=== PATIENT | female | born 1975 | race Caucasian/White ===

== ENCOUNTER 2022-05-23 13:18 | Inpatient (IN) | payer SELFPAY ==
[2022-05-23 13:46] LABS: Absolute Lymphocytes (CBC) 2.1 K/uL (0.7-4.9); Hematocrit 42.6 % (36.0-45.0); Lymphocytes % 18.1 % (15.3-44.8); MCV 88.2 fL (80-100); MPV 7.6 fL (7.6-11.3); RBC Red Blood Cell Count 4.83 M/uL (3.86-4.86)
[2022-05-23 13:52] LABS: Urine Blood 1+ (Negative); Urine Glucose Negative (Negative); Urine Protein Negative (Negative); Urine pH 7.5 (5.0-7.0)
[2022-05-23 14:03] LABS: Albumin 3.3 g/dL (3.4-5.0); Bilirubin Total 0.2 mg/dL (0.2-1.0); Potassium 4.1 mmol/L (3.5-5.1); Protein, Total 6.8 g/dL (6.4-8.2)
[2022-05-23 14:06] LABS: Urine Bacteria <20 /HPF (<20); Urine Mucus Slight /HPF (None Seen)
[2022-05-23] MEDS ORDERED: ONDANSETRON 4 MG/2 ML VIAL ONE ×3 (14:52→17:40)
[2022-05-23] MEDS ORDERED: MORPHINE 4 MG/ML SYR ONE (14:52)
--- NOTE | 2022-05-23 14:58 | RAD REPORT ---
EXAM DESCRIPTION: CTAbdomen Pelvis W Contrast - 05/23/2022 2:40 pm CLINICAL HISTORY: Abdominal pain. ABD PAIN COMPARISON: No comparisons TECHNIQUE: Biphasic CT imaging of the abdomen and pelvis was performed with 100 ml non-ionic IV cont rast. All CT scans are performed using dose optimization technique as appropriate and may include automated exposure control or mA/KV adjustment according to patient size. FINDINGS: The lung bases are clear. The liver, spleen, pancreas, adrenal glands and right kidney are within normal limits. Atrophic left kidney. There is a dilated tubular structure in the right lower quadrant measuring 22 mm. There is mild adjac ent fluid seen in the right lower quadrant. Significant stool retention in the right colon. No evid ence of significant lymphadenopathy. Mild lumbosacral degenerative changes. IMPRESSION: Acute appendicitis, possibly perforated.
--- NOTE | 2022-05-23 15:01 | RAD REPORT ---
EXAM DESCRIPTION: US - Transvaginal Study Probe - 05/23/2022 2:41 pm CLINICAL HISTORY: PAIN Pelvic pain. COMPARISON: No comparisons FINDINGS: The uterus is normal in size, shape and echotexture. The uterus measures 6.7 x 3.6 cm. The endometrial stripe measures 10-11 mm, thickened. Both ovaries are normal in size, shape and echotexture. The right ovary measures 2.6 x 1.9 cm. The left ovary measures 2.9 x 2.6 cm. No ovarian or parovarian lesions. No adnexal masses. Normal Doppler blood flow was demonstrated to both ovaries. No significant pelvic ascites. IMPRESSION: No acute process identified.Mildly thickened endometrial stripe, probably physiologic.
[2022-05-23] MEDS ORDERED: NA CHLORIDE 0.9% 100 ML ONE (15:32)
[2022-05-23] MEDS ORDERED: HYDROMORPHONE HCL 1 MG/ML INJ ONE (15:32)
[2022-05-23] MEDS ORDERED: PIPERACIL/TAZO 3.375 GM VIAL IV ONE (15:32)
[2022-05-23] MEDS ORDERED: NA CHLORIDE 0.9% 1,000 ML ONE (15:32)
[2022-05-23 15:59] LABS: SARS-CoV-2 Antigen Rapid Res Negative (Negative)
[2022-05-23] MEDS ORDERED: ACETAMINOPHEN 500 MG TAB PO PRN (16:10)
--- NOTE | 2022-05-23 16:25 | RAD REPORT ---
EXAM DESCRIPTION: RAD - Chest Single View - 05/23/2022 4:00 pm CLINICAL HISTORY: ABDOMINAL DISTENTION Chest pain. COMPARISON: CHEST SINGLE VIEW dated 03/11/2012; CHEST SINGLE VIEW dated 03/10/2012 FINDINGS: Portable technique limits examination quality. The lungs are grossly clear. The heart is normal in size. No displaced fractures. IMPRESSION: No acute intrathoracic process suspected.
[2022-05-23] MEDS ORDERED: HYDROMORPHONE HCL 1 MG/ML INJ IV SCH (17:00)
[2022-05-23] MEDS: PIPER TAZO 3.375 GM in NA CHLORIDE 0.9% 100 ML IV SCH (17:00)
--- NOTE | 2022-05-23 17:03 | P.HP ---
Certification for Inpatient Patient admitted to: Observation With expected LOS: <2 Midnights Patient will require the following post-hospital care: None Practitioner: I am a practitioner with admitting privileges, knowledge of patient current condition, hospital course, and medical plan of care. Services: Services provided to patient in accordance with Admission requirements found in Title 42 Section 412.3 of the Code of Federal Regulations Patient History Date of Service: 05/23/22 Reason for admission: PERFORATED APPENDIX Allergies No Known Allergies Allergy (Unverified 03/10/12 12:59) Home Medications: levoFLOXacin [Levaquin*] 500 mg PO DAILY #5 tab 03/12/12 - Past Medical/Surgical History Diabetic: No - Social History Alcohol use: Yes CD- Drugs: Yes Caffeine use: Yes Review of Systems 10-point ROS is otherwise unremarkable Physical Examination - Vital Signs Temperature: 98 F Blood Pressure: 140/80 Pulse: 80 Respirations: 18 Pulse Ox (%): 95 - Physical Exam General: Alert, In no apparent distress, Oriented x3 HEENT: Atraumatic, PERRLA, Mucous membr. moist/pink, EOMI, Sclerae nonicteric Neck: Supple, 2+ carotid pulse no bruit, No LAD, Without JVD or thyroid abnormality Respiratory: Clear to auscultation bilaterally, Normal air movement Cardiovascular: Regular rate/rhythm, Normal S1 S2 Gastrointestinal: Normal bowel sounds, No tenderness Musculoskeletal: No tenderness Integumentary: No rashes Neurological: Normal gait, Normal speech, Normal strength at 5/5 x4 extr, Normal tone, Normal affect Lymphatics: No axilla or inguinal lymphadenopathy - Studies Laboratory Data (last 24 hrs) 05/23/22 13:31: Sodium 139, Potassium 4.1, BUN 19 H, Creatinine 0.96, Glucose 112 H, Total Bilirubin 0.2, AST 28, ALT 32, Alkaline Phosphatase 75, Lipase 20 05/23/22 13:31: WBC 11.80 H, Hgb 13.9, Hct 42.6, Plt Count 344 Assessment & Plan - Problems (Diagnosis) (1) Perforated appendicitis Current Visit: Yes Status: Acute - Advance Directives Does patient have a Living Will: No Does patient have a Durable POA for Healthcare: No
[2022-05-23] MEDS ORDERED: BUPIVACAINE 0.25% PF 30 ML VIAL ONE (17:31)
[2022-05-23] MEDS ORDERED: KETOROLAC 30 MG/ML INJ ONE (17:39)
[2022-05-23] MEDS ORDERED: propofoL 200 MG/20 ML VIAL IV ONE (17:39)
[2022-05-23] MEDS ORDERED: LIDOCAINE 2% MPF 5 ML VIAL ONE (17:39)
[2022-05-23] MEDS ORDERED: FENTANYL CITR 250 MCG/5 ML ONE (17:39)
[2022-05-23] MEDS ORDERED: ROCURONIUM 50 MG/5 ML VIAL IV ONE (17:39)
[2022-05-23] MEDS ORDERED: dexAMETHasone 10 MG/ML VIAL ONE (17:40)
--- NOTE | 2022-05-23 18:04 | CON ---
Date of Consultation: 05/23/2022 Brief History Of Present Illness: The patient is a 46-year-old female, who presents with sudden onse t of right lower quadrant abdominal pain beginning earlier today. She noted the pain got significant ly worse, severe, stabbing, and intractable. As such, she came to the emergency room with the above- stated complaints. She states she has had some constipation as of late and required digital removal of the stool. As of this last week, she has had some nausea, but no vomiting. The pain continues to be persistent into the right lower quadrant at this point. She does admit to medicating at home wit h a combination of recreational drugs including methamphetamines, marijuana, cocaine, LSD, and prescr iption pills including benzodiazepines such as Valium. Past Medical History: Hypertension, prediabetic, polycystic ovary disease. Past Surgical History: Denies. Allergies: NO KNOWN DRUG ALLERGIES. Medications: She takes a blood pressure medication, she cannot recall the details. Social History: Admits to multiple recreational drug use as described above including, but not limit ed to marijuana, cocaine, LSD, heroin, benzodiazepines, and other prescription medications for pain p redominantly and for sedation. 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 Review of Systems: Ten-point review of systems other than HPI, denies. Physical Examination: General: At the time of my examination, she is awake, alert, oriented. Psychiatric: She is appropriate, conversive. HEENT: She is normocephalic. Sclerae anicteric. Mucous membranes moist. Oropharynx clear. Neck: Supple without JVD. Chest: Expansion and excursion. Cardiovascular: Regular rate and rhythm. Pulmonary: Clear to auscultation bilaterally. Abdomen: Soft with positive right lower quadrant focal peritonitis, positive rebound, positive guard ing near McBurney point. Extremities: No clubbing, cyanosis, or edema. Skin: Warm and dry. Laboratory Data: Revealed a white blood cell count of 11.8, hemoglobin is 13.9, hematocrit 42.6, tasha telet count is 344, neutrophils 79%. Her sodium 139, potassium 4.1, chloride 110, carbon dioxide 24, BUN 19, creatinine 0.9, glucose is 112, calcium 9.8, total bilirubin 0.2, AST 20, ALT 32, alkaline p hosphatase 75, lipase is 20. UA showed 5-10 red blood cells and 20-50 squamous epithelial cells, tra ce amorphous crystals, negative leukocyte esterase, negative nitrite. She had imaging performed, [facility] included an abdomen and pelvis CT, officially read on 05/23/2022 as acute appendicitis, probably p erforated. There was a dilated tubular structure in the right lower quadrant measuring 22 mm. There was mild adjacent fluid in the right lower quadrant, significant stool retention in the right colon. No evidence of significant lymphadenopathy. She had a transvaginal ultrasound performed as well as she has a history of polycystic ovary disease, which was officially read as no acute process identif ied, mildly thickened endometrial stripe, probably physiologic. Both ovaries are normal in size, sha pe, and echotexture. No ovarian or paraovarian lesion. No adnexal masses. Chest x-ray performed on 05/23 officially read as no acute intrathoracic process suspected. Assessment And Plan: This is a 46-year-old female, who comes in with signs and symptoms of acute pos sibly perforated appendicitis. 1.IV fluid hydration. 2.Antibiotic coverage. 3.I have explained risks, benefits, and alternatives of laparoscopic possible open appendectomy incl uding, but not limited to bleeding, infection, damage to surrounding tissue, need for further operation and procedures. The patient agre ed to proceed as indicated. NICKY/ALLISON Voice ID: [id number] Report ID: [id number]
[2022-05-23] MEDS ORDERED: GLYCOPYRROLATE 0.2 MG/ML SYR ONE (18:12)
[2022-05-23] MEDS ORDERED: NEOSTIGMINE 1 MG/ML -10 ML VIAL ONE (18:13)
--- NOTE | 2022-05-23 18:30 | P.OP ---
Preoperative diagnosis: Perforated Appendicitis Postoperative diagnosis: Perforated Appendicitis Primary procedure: Laparoscopic Appendectomy Anesthesia: GETA + Local Estimated blood loss: <5cc Specimen: Vermiform Appendix Findings: perforated appendicits Complications: None Transferred to: Recovery Room Condition: Good
[2022-05-23] MEDS ORDERED: LABETALOL 20 MG/4ML SYRINGE IV ONE (18:40)
[2022-05-23 18:58] VITALS: O2SAT 95
[2022-05-23] MEDS: D5 0.45 NS 1,000 ML IV SCH (19:26)
--- NOTE | 2022-05-23 19:34 | OP ---
Date of Procedure: 05/23/2022 Surgeon: Juliano Schulz MD, Preoperative Diagnosis: Perforated appendicitis. Postoperative Diagnosis: Perforated appendicitis. Procedure Performed: Laparoscopic appendectomy. Anesthesia: General endotracheal plus local with 0.25% Marcaine. Estimated Blood Loss: Less than 5 cc. Specimen: Vermiform appendix. Pelvic washings sent for cytology. Findings: Acute perforated appendicitis with significant intraabdominal inflammation and contaminati on. Complications: None. Disposition: The patient was transferred to the recovery room in good condition. Procedure In Detail: After informed consent was obtained, the patient was brought to the operating r oom, prepped and draped in the usual sterile fashion after adequate anesthesia was achieved. An infr aumbilical area was anesthetized with 0.25% Marcaine, sharply incised. A 5 mm trocar was placed unde r direct visualization without evidence of complication. Insufflation was obtained to 15 mmHg at thi s time. There was no injury to vital structure upon entry into the abdomen. Two additional trocars were placed, 1 in the right lower quadrant and 1 in the left lower quadrant. Both of these were antonia larly anesthetized, sharply incised. A 5 mm trocar was placed under direct visualization without nelida dence of complication. The umbilical trocar was then upsized to a 12 mm under direct visualization w ithout evidence of complication. The patient was positioned in the head down right side up position. Ratcheted grasper was used to grasp the patient's appendix, found to be quite dilated and consisten t with perforation. Perforation was appreciated on the proximal aspect of the appendix. A mesoappen diceal window was created using a Soraida tractor. Endo-CASSANDRA 45 purple load fired across the base of the appendix with good approximation of tissues. The LigaSure was then used to take the mesoappendix down without evidence of complication. The appendix was then placed in EndoCatch bag, removed throu gh the umbilical trocar site and sent off for pathologic examination. The abdomen was then copiously irrigated and suctioned out until completely dry from all irrigant. Pelvic examination was also preston reciated. This area was copiously irrigated as well and suctioned out until completely clear. Of no te, there was no appearance of polycystic ovary disease as the adnexum was inspected at this point. Additionally, there were small areas of punctate lesions on the liver. As such, peritoneal washing w as performed at this time and this was sent off for cytology at this time as well. After the abdomen was copiously irrigated and dried second time, the patient was positioned back in neutral position. The remaining effluent fluid suctioned out from the pelvis. The 12 mm trocar site was then closed u sing a Avelino-Jagdish suture passer with 0 Vicryl in a running fashion with good approximation of ti ssues. The remaining trocars were then inspected and the abdomen was de-desufflated under direct vis ualization without evidence of complication. Remaining trocars were removed. All skin incisions wer e copiously irrigated and closed with interrupted yehuda and a sterile dressing placed over top. Th e patient tolerated the procedure well without evidence of complication and transferred to PACU in go od condition. All counts were correct at the end of the case. NICKY/ALLISON Voice ID: [id number] Report ID: [id number]
[2022-05-23] MEDS: FAMOTIDINE 20 MG/2 ML VIAL IV SCH (20:44)
[2022-05-23 22:33] VITALS: BMI 34.9
[2022-05-24] MEDS: HYDROMORPHONE HCL 1 MG/ML INJ IV PRN ×3 (00:14→22:06)
[2022-05-24] MEDS: PIPER TAZO 3.375 GM in NA CHLORIDE 0.9% 100 ML IV SCH ×3 (00:14→17:49)
[2022-05-24] MEDS: D5 0.45 NS 1,000 ML IV SCH ×4 (03:29→18:01)
[2022-05-24 03:55] LABS: Absolute Lymphocytes (CBC) 0.6 K/uL (0.7-4.9); Hematocrit 38.6 % (36.0-45.0); Lymphocytes % 2.6 % (15.3-44.8); MCV 89.5 fL (80-100); MPV 8.1 fL (7.6-11.3); RBC Red Blood Cell Count 4.31 M/uL (3.86-4.86)
[2022-05-24 03:56] LABS: Albumin 2.8 g/dL (3.4-5.0); Bilirubin Direct 0.2 mg/dL (0-0.2); Bilirubin Total 0.5 mg/dL (0.2-1.0); Potassium 4.1 mmol/L (3.5-5.1); Protein, Total 6.2 g/dL (6.4-8.2)
[2022-05-24 04:21] LABS: Blood Morphology Comment NOT SEEN (NOT SEEN); Platelet Estimate ADEQ
[2022-05-24] MEDS: HYDROCODONE/APAP 5/325 MG TAB PO PRN ×3 (06:34→17:48)
[2022-05-24] MEDS: FAMOTIDINE 20 MG/2 ML VIAL IV SCH ×2 (08:34→22:05)
[2022-05-24] MEDS ORDERED: ACETAMINOPHEN 325 MG TABLET PO PRN (09:36)
--- NOTE | 2022-05-24 13:04 | EKG ---
Test Date: 2022-05-23 Test Time: 15:41:34 Machine Finisher: SIMA MEASUREMENT RESULTS: Intervals: Rate: 101 WA: 156 QRSD: 80 QT: 344 QTc: 446 [place]: P: 68 WA: 156 QRS: -39 T: 64 INTERPRETIVE STATEMENTS: Sinus tachycardia Possible Left atrial enlargement Left axis deviation Septal infarct, age undetermined Abnormal ECG Compared to ECG 03/10/2012 14:03:04 Left-axis deviation now present Myocardial infarct finding now present Sinus rhythm no longer present Electronically Signed On 05-24-22 13:03:02 HYDROLOGY TEACHER by Chadd Matos
[2022-05-24] MEDS: INSULIN -REGULAR HUMAN 50 UNIT/0.5 ML ML SQ SCH ×2 (16:30→21:00)
[2022-05-24] MEDS: HEPARIN 5000 UNIT/ML 1 ML VIAL SQ SCH (17:49)
[2022-05-25] MEDS: PIPER TAZO 3.375 GM in NA CHLORIDE 0.9% 100 ML IV SCH ×3 (01:09→18:15)
[2022-05-25] MEDS: D5 0.45 NS 1,000 ML IV SCH ×3 (01:12→19:39)
[2022-05-25] MEDS: HEPARIN 5000 UNIT/ML 1 ML VIAL SQ SCH ×3 (01:13→18:15)
[2022-05-25] MEDS: HYDROMORPHONE HCL 1 MG/ML INJ IV PRN ×4 (04:29→19:57)
[2022-05-25 04:37] LABS: Absolute Lymphocytes (CBC) 2.4 K/uL (0.7-4.9); Hematocrit 36.9 % (36.0-45.0); Lymphocytes % 12.4 % (15.3-44.8); MCV 88.9 fL (80-100); MPV 7.5 fL (7.6-11.3); RBC Red Blood Cell Count 4.15 M/uL (3.86-4.86)
[2022-05-25 04:48] LABS: Magnesium 2.1 mg/dL (1.6-2.4); Phosphorus 1.9 mg/dL (2.5-4.9)
[2022-05-25] MEDS: INSULIN -REGULAR HUMAN 50 UNIT/0.5 ML ML SQ SCH ×4 (07:30→19:40)
[2022-05-25] MEDS: POTASS/SODIUM PHOSPHATE 1 PKT POWD.PACK PO SCH ×3 (08:08→10:47)
[2022-05-25] MEDS: FAMOTIDINE 20 MG/2 ML VIAL IV SCH (08:09)
[2022-05-25] MEDS: ONDANSETRON 4 MG/2 ML VIAL IV PRN (09:30)
[2022-05-25] MEDS: HYDROCODONE/APAP 5/325 MG TAB PO PRN (10:48)
[2022-05-25] MEDS ORDERED: ERTAPENEM SODIUM 1 GM VIAL IVPB ONE (16:25)
[2022-05-25] MEDS ORDERED: ERTAPENEM NA 1 GM in NA CHLORIDE 0.9% 100 ML IVPB ONE (17:00)
[2022-05-25] MEDS: FAMOTIDINE 20 MG TAB PO SCH (19:43)
[2022-05-26] MEDS: HEPARIN 5000 UNIT/ML 1 ML VIAL SQ SCH ×3 (00:40→16:39)
[2022-05-26] MEDS: HYDROMORPHONE HCL 1 MG/ML INJ IV PRN ×2 (00:40→04:45)
[2022-05-26] MEDS: PIPER TAZO 3.375 GM in NA CHLORIDE 0.9% 100 ML IV SCH ×3 (00:40→16:38)
[2022-05-26] MEDS: D5 0.45 NS 1,000 ML IV SCH (03:48)
[2022-05-26 05:15] LABS: Hematocrit 42.3 % (36.0-45.0); MCV 88.6 fL (80-100); RBC Red Blood Cell Count 4.77 M/uL (3.86-4.86)
[2022-05-26 05:16] LABS: Absolute Lymphocytes (CBC) 1.4 K/uL (0.7-4.9); Lymphocytes % 12.3 % (15.3-44.8); MPV 8.2 fL (7.6-11.3)
[2022-05-26 05:23] LABS: Magnesium 1.8 mg/dL (1.6-2.4); Phosphorus 3.1 mg/dL (2.5-4.9); Potassium 3.8 mmol/L (3.5-5.1)
[2022-05-26] MEDS ORDERED: MAGNESIUM SULFATE 1 gm IVPB 1 GM/100 ML BAG IV ONE (05:40)
[2022-05-26] MEDS ORDERED: POTASSIUM CL SA 10 MEQ TAB PO ONE (05:41)
[2022-05-26] MEDS: INSULIN -REGULAR HUMAN 50 UNIT/0.5 ML ML SQ SCH ×4 (07:30→21:00)
[2022-05-26] MEDS: FAMOTIDINE 20 MG TAB PO SCH ×2 (08:15→21:04)
[2022-05-26] MEDS: HYDROCODONE/APAP 5/325 MG TAB PO PRN ×4 (08:15→21:04)
--- NOTE | 2022-05-26 10:35 | P.PN ---
Date of Service: 05/25/22 Subjective Subjective: No new changes, No C/O voiced, Improving Physical Examination - Vital Signs reviewed - Physical Exam General: Alert, In no apparent distress Respiratory: Clear to auscultation bilaterally, Normal air movement Cardiovascular: Regular rate/rhythm, Normal S1 S2 Gastrointestinal: Normal bowel sounds, No tenderness Musculoskeletal: No tenderness Neurological: Normal speech, Normal tone, Normal affect Assessment & Plan - Problems (Diagnosis) (1) Perforated appendicitis Current Visit: Yes Status: Acute - Plan PLAN: 1. Continue with antibiotics 2. IVFs 3. Pathology pending 4. GI/DVT prophylaxis
--- NOTE | 2022-05-26 10:35 | P.PN ---
Subjective Date of Service: 05/24/22 Subjective: No new changes, No C/O voiced, Improving Review of Systems 10-point ROS is otherwise unremarkable Physical Examination - Vital Signs Temperature: 97.0 F Blood Pressure: 130/87 Pulse: 80 Respirations: 16 Pulse Ox (%): 98 - Physical Exam General: Alert, In no apparent distress HEENT: Atraumatic, PERRLA, EOMI Neck: Supple, JVD not distended Respiratory: Clear to auscultation bilaterally, Normal air movement Cardiovascular: Regular rate/rhythm, Normal S1 S2 Gastrointestinal: Normal bowel sounds, No tenderness Musculoskeletal: No tenderness Integumentary: No rashes Neurological: Normal speech, Normal tone, Normal affect Lymphatics: No axilla or inguinal lymphadenopathy - Studies Medications List Reviewed: Yes Assessment & Plan - Problems (Diagnosis) (1) Perforated appendicitis Current Visit: Yes Status: Acute - Plan PLAN: 1. Continue with antibiotics 2. IVFs 3. Pathology pending 4. GI/DVT prophylaxis Discharge Plan: Home Plan to discharge in: Greater than 2 days - Advance Directives Does patient have a Living Will: No Does patient have a Durable POA for Healthcare: No - Code Status/Comfort Care Code Status Assessed: Yes Code Status: Full Code Critical Care: No Time Spent Managing PTS Care (In Minutes): 35
[2022-05-26] MEDS: ONDANSETRON 4 MG/2 ML VIAL IV PRN (21:05)
[2022-05-27] MEDS: HYDROCODONE/APAP 5/325 MG TAB PO PRN (00:55)
[2022-05-27] MEDS: PIPER TAZO 3.375 GM in NA CHLORIDE 0.9% 100 ML IV SCH ×2 (00:55→09:11)
[2022-05-27] MEDS: HEPARIN 5000 UNIT/ML 1 ML VIAL SQ SCH (00:56)
[2022-05-27 04:51] LABS: Absolute Lymphocytes (CBC) 2.2 K/uL (0.7-4.9); Hematocrit 40.2 % (36.0-45.0); Lymphocytes % 23.4 % (15.3-44.8); MCV 89.7 fL (80-100); MPV 7.9 fL (7.6-11.3); RBC Red Blood Cell Count 4.47 M/uL (3.86-4.86)
[2022-05-27 05:29] LABS: Albumin 2.7 g/dL (3.4-5.0); Bilirubin Total 0.1 mg/dL (0.2-1.0); Phosphorus 3.6 mg/dL (2.5-4.9); Protein, Total 6.3 g/dL (6.4-8.2)
[2022-05-27 05:35] LABS: Potassium 3.8 mmol/L (3.5-5.1)
[2022-05-27] MEDS: INSULIN -REGULAR HUMAN 50 UNIT/0.5 ML ML SQ SCH (07:30)
[2022-05-27 08:09] VITALS: BP 135/85; TEMP 98
[2022-05-27] MEDS ORDERED: POTASSIUM 25 MEQ EFFERV TAB PO ONE ×2 (09:00)
[2022-05-27] MEDS: FAMOTIDINE 20 MG TAB PO SCH (09:11)
--- NOTE | 2022-06-09 14:20 | EDPHYS ---
Physician Documentation [facility] Name: Gillian Almeida Age: 46 yrs Sex: Female : 1975 Arrival Date: 05/23/2022 Time: 13:19 Bed 5 Private MD: ED Physician Jake Streeter HPI: 05/23 15:26 This 46 yrs old Female presents to ER via Wheelchair with complaints of javier Pelvic Pain. 15:26 The patient presents with abdominal pain right lower quadrant, abdominal distention in javier the upper abdomen, in the lower abdomen. Onset: The symptoms/episode began/occurred 1 day(s) ago. The symptoms do not radiate. Associated signs and symptoms: Pertinent positives: nausea and vomiting. The symptoms are described as constant, crampy. Modifying factors: The symptoms are alleviated by remaining still, the symptoms are aggravated by coughing, movement, pressure, walking. Severity of pain: At its worst the pain was mild moderate in the emergency department the pain is unchanged. The patient has not experienced similar symptoms in the past. Historical: - Allergies: 13:30 No Known Allergies; iw - Home Meds: 13:30 Adderall XR Oral [Active]; Lisinopril Oral [Active]; Metformin Oral [Active]; bupropion iw HCl Oral daily [Active]; Abilify oral [Active]; - Immunization history:: Adult Immunizations unknown. - Family history:: not pertinent. - Social history:: Smoking status: Patient reports the use of cigarette tobacco products, smokes one pack cigarettes per day. ROS: 15:26 Constitutional: Negative for fever, chills, and weight loss, Eyes: Negative for injury, javier pain, redness, and discharge, ENT: Negative for injury, pain, and discharge, Neck: Negative for injury, pain, and swelling, Cardiovascular: Negative for chest pain, palpitations, and edema, Respiratory: Negative for shortness of breath, cough, wheezing, and pleuritic chest pain, Back: Negative for injury and pain, : Negative for injury, bleeding, discharge, and swelling, MS/Extremity: Negative for injury and deformity, Skin: Negative for injury, rash, and discoloration, Neuro: Negative for headache, weakness, numbness, tingling, and seizure, Psych: Negative for depression, anxiety, suicide ideation, homicidal ideation, and hallucinations, Allergy/Immunology: Negative for hives, rash, and allergies, Endocrine: Negative for neck swelling, polydipsia, polyuria, polyphagia, and marked weight changes, Hematologic/Lymphatic: Negative for swollen nodes, abnormal bleeding, and unusual bruising. 15:26 Abdomen/GI: Positive for abdominal pain, of the right lower quadrant. Exam: 15:26 Constitutional: This is a well developed, well nourished patient who is awake, alert, javier and in no acute distress. Head/Face: Normocephalic, atraumatic. Eyes: Pupils equal round and reactive to light, extra-ocular motions intact. Lids and lashes normal. Conjunctiva and sclera are non-icteric and not injected. Cornea within normal limits. Periorbital areas with no swelling, redness, or edema. ENT: Nares patent. No nasal discharge, no septal abnormalities noted. Tympanic membranes are normal and external auditory canals are clear. Oropharynx with no redness, swelling, or masses, exudates, or evidence of obstruction, uvula midline. Mucous membranes moist. Neck: Trachea midline, no thyromegaly or masses palpated, and no cervical lymphadenopathy. Supple, full range of motion without nuchal rigidity, or vertebral point tenderness. No Meningismus. Chest/axilla: Normal chest wall appearance and motion. Nontender with no deformity. No lesions are appreciated. Cardiovascular: Regular rate and rhythm with a normal S1 and S2. No gallops, murmurs, or rubs. Normal PMI, no JVD. No pulse deficits. Respiratory: Lungs have equal breath sounds bilaterally, clear to auscultation and percussion. No rales, rhonchi or wheezes noted. No increased work of breathing, no retractions or nasal flaring. Back: No spinal tenderness. No costovertebral tenderness. Full range of motion. Female : Normal external genitalia. Skin: Warm, dry with normal turgor. Normal color with no rashes, no lesions, and no evidence of cellulitis. MS/ Extremity: Pulses equal, no cyanosis. Neurovascular intact. Full, normal range of motion. Neuro: Awake and alert, GCS 15, oriented to person, place, time, and situation. Cranial nerves II-XII grossly intact. Motor strength 5/5 in all extremities. Sensory grossly intact. Cerebellar exam normal. Normal gait. Psych: Awake, alert, with orientation to person, place and time. Behavior, mood, and affect are within normal limits. 15:26 Abdomen/GI: Bowel sounds: normal, Palpation: moderate abdominal tenderness, in the right lower quadrant, Liver: no appreciated palpable abnormalities, Hernia: not appreciated. 15:50 ECG was reviewed by the Attending Physician. [facility] Vital Signs: 13:26 BP 165 / 92; Pulse 105; Resp 20; Temp 98; Pulse Ox 98% on R/A; Pain 10/10; iw 16:04 BP 148 / 102; Pulse 107; Resp 18; Temp 97.8; Pulse Ox 98% on R/A; ph 13:26 Pain Scale: Adult iw MDM: 13:23 Patient medically screened. [facility] 15:39 Differential diagnosis: appendicitis, bowel obstruction, Cholelithiasis, Dysmenorrhea, javier Endometriosis, gastritis, non-specific abd pain, Peptic Ulcer Disease, Pyelonephritis, Ureterolithiasis, urinary tract infection. Data reviewed: vital signs, nurses notes, lab test result(s), EKG, radiologic studies, CT scan, plain films. Consideration of Admission/Observation Patient was admitted/placed on observation. Management of patient was discussed with the following: Adult School Counselor: general surgeon, dr juliano desai. I considered the following discharge prescriptions or medication management in the emergency department Medications were administered in the Emergency Department. See MAY. 05/23 13:25 Order name: CBC with Diff [facility] 05/23 13:25 Order name: CMP [facility] 05/23 13:25 Order name: Lipase [facility] 05/23 13:25 Order name: Urine Microscopic Only [facility] 05/23 13:48 Order name: CBC with Automated Diff; Complete Time: 15:21 [facility] 05/23 13:52 Order name: Urine Dipstick-Ancillary; Complete Time: 15:21 [facility] 05/23 14:04 Order name: Comprehensive Metabolic Panel; Complete Time: 15:21 [facility] 05/23 14:04 Order name: Lipase; Complete Time: 15:21 [facility] 05/23 14:06 Order name: Urine Microscopic Only; Complete Time: 15:21 [facility] 05/23 15:00 Order name: SARS RAPID 05/23 16:00 Order name: SARS-COV-2 Antigen Rapid [facility] 05/23 13:25 Order name: CT Abd/Pelvis - IV Contrast Only [facility] 05/23 13:25 Order name: US Transvaginal Study (Probe) [facility] 05/23 14:58 Order name: CT; Complete Time: 15:21 [facility] 05/23 15:02 Order name: US; Complete Time: 15:21 [facility] 05/23 15:29 Order name: Chest Single View XRAY [facility] 05/23 16:26 Order name: RAD [facility] 05/23 15:29 Order name: EKG; Complete Time: 15:30 [facility] 05/23 13:25 Order name: IV Saline Lock; Complete Time: 14:52 [facility] 05/23 13:25 Order name: Labs collected and sent; Complete Time: 14:52 [facility] 05/23 13:25 Order name: Urine Dipstick-Ancillary (obtain specimen); Complete Time: 14:52 [facility] 05/23 13:25 Order name: Urine Test (obtain specimen); Complete Time: 14:52 [facility] 05/23 15:25 Order name: NPO; Complete Time: 16:01 [facility] 05/23 15:29 Order name: EKG - Nurse/Tech; Complete Time: 15:48 [facility] EC:50 Rate is 101 beats/min. Rhythm is regular. QRS [place] is Normal. DE interval is normal. [facility] QRS interval is normal. QT interval is normal. No Q waves. T waves are Normal. No ST changes noted. Clinical impression: NSR w/ Non-specific ST/T Changes and No evidence of ischemia. Interpreted by me. Reviewed by me. Administered Medications: 14:48 Drug: Ondansetron IVP 4 mg Route: IVP; Site: right antecubital; ph 16:27 Follow up: Response: No adverse reaction ph 14:54 Drug: Ondansetron IVP 4 mg Route: IVP; Site: right antecubital; iw 15:30 Follow up: Response: No adverse reaction ph 14:54 Drug: morphine IVP or IV 4 mg Route: IVP; Infused Over: 4 mins; Site: right antecubital;iw 15:30 Follow up: Response: No adverse reaction; Pain is unchanged, physician notified ph 15:50 Drug: HYDROmorphone IVP 1 mg Route: IVP; Site: right antecubital; ph 16:28 Follow up: Response: No adverse reaction; Pain is decreased; RASS: Drowsy (-1) ph 16:01 Drug: Piperacillin-Tazobactam IVPB 3.375 grams Route: IVPB; Infused Over: 60 mins; ph Site: right antecubital; 16:28 Follow up: Response: No adverse reaction; IV Status: Infusion continued upon admission ph 16:01 Drug: NS 0.9% IV 1000 ml Route: IV; Rate: 1 bolus; Site: right antecubital; ph 16:27 Follow up: Response: No adverse reaction; IV Intake: 1000ml ph 16:28 Follow up: Response: No adverse reaction; IV Intake: 1000ml ph 16:28 Follow up: Response: No adverse reaction ph 16:31 Not Given (Other Intervention Used): NS 0.9% IV 1000 ml IV at 1 bolus Per protocol; ph 1000 mL bolus Disposition Summary: 05/23/22 15:33 Hospitalization Ordered Hospitalization Status: Observation javier Location: Telemetry/MedSurg (observation) javier Condition: Fair javier Problem: new javier Symptoms: have improved javier Bed/Room Type: Standard javier Room Assignment: [facility] Provider: Adalberto Herrmann(05/23/22 15:50) javier Diagnosis - Acute appendicitis with localized peritonitis - perforated javier - Elevated white blood cell count javier - Abuse of other non-psychoactive substances javier - Adverse effect of amphetamines javier - Cocaine abuse javier Forms: - Medication Reconciliation Form javier - SBAR form javier Signatures: Dispatcher [employer] EDJake Brice MD MD cha Williams, Irene, RN RN iw Feli Sifuentes RN RN ph Corrections: (The following items were deleted from the chart) 15:50 15:33 Juliano Desai cha javier
--- NOTE | 2022-06-09 14:20 | ER ---
Nurse's Notes [facility] Name: Gillian Almeida Age: 46 yrs Sex: Female : 1975 Arrival Date: 05/23/2022 Time: 13:19 Bed 5 Private MD: Diagnosis: Acute appendicitis with localized peritonitis-perforated;Elevated white blood cell count;Abuse of other non-psychoactive substances;Adverse effect of amphetamines;Cocaine abuse Presentation: 05/23 13:26 Chief complaint: Patient states: felt a pop in her pelvic area , had a fall 5 days ago iw and has pain to her knees and her sciatica flared up. Coronavirus screen: At this time, the client does not indicate any symptoms associated with coronavirus-19. Ebola Screen: Patient negative for fever greater than or equal to 101.5 degrees Fahrenheit, and additional compatible Ebola Virus Disease symptoms Patient denies exposure to infectious person. Patient denies travel to an Ebola-affected area in the 21 days before illness onset. No symptoms or risks identified at this time. Initial Sepsis Screen: Does the patient meet any 2 criteria? HR > 90 bpm. Does the patient have a suspected source of infection?. Risk Assessment: Do you want to hurt yourself or someone else? Patient reports no desire to harm self or others. Onset of symptoms was May 23, 2022. 13:26 Method Of Arrival: Wheelchair iw 13:26 Acuity: JAIDA 2 iw Historical: - Allergies: 13:30 No Known Allergies; iw - Home Meds: 13:30 Adderall XR Oral [Active]; Lisinopril Oral [Active]; Metformin Oral [Active]; bupropion iw HCl Oral daily [Active]; Abilify oral [Active]; - Immunization history:: Adult Immunizations unknown. - Family history:: not pertinent. - Social history:: Smoking status: Patient reports the use of cigarette tobacco products, smokes one pack cigarettes per day. Screenin:01 [facility] ED Fall Risk Assessment (Adult) History of falling in the last 3 months, ph including since admission Yes- single mechanical fall (1 pt) Confusion or Disorientation No (0 pts) Intoxicated or Sedated No (0 pts) Impaired Gait No (0 pts) Mobility Assist Device Used No (0 pt) Altered Elimination No (0 pt) Score/Fall Risk Level 0 - 2 = Low Risk Oriented to surroundings, Maintained a safe environment, Hourly rounding (assess needs \T\ fall precautionary measures) done. Abuse screen: Denies threats or abuse. Denies injuries from another. Nutritional screening: No deficits noted. Tuberculosis screening: No symptoms or risk factors identified. Assessment: 15:45 General: Appears in no apparent distress. uncomfortable, Behavior is calm, cooperative, ph appropriate for age, Denies fever. Pain: Complains of pain in right lower quadrant. Neuro: Level of Consciousness is awake, alert, obeys commands, Oriented to person, place, time, situation. Cardiovascular: Capillary refill < 3 seconds in bilateral fingers Patient's skin is warm and dry. Respiratory: Airway is patent Respiratory effort is even, unlabored, Respiratory pattern is regular, symmetrical. GI: Reports lower abdominal pain, constipation, nausea. Derm: Skin is healthy with good turgor, Skin is pink, warm \T\ dry. Musculoskeletal: Circulation, motion, and sensation intact. Range of motion: intact in all extremities. Vital Signs: 13:26 BP 165 / 92; Pulse 105; Resp 20; Temp 98; Pulse Ox 98% on R/A; Pain 10/10; iw 16:04 BP 148 / 102; Pulse 107; Resp 18; Temp 97.8; Pulse Ox 98% on R/A; ph 13:26 Pain Scale: Adult iw ED Course: 13:19 Patient arrived in ED. am2 13:23 Jake Streeter MD is Attending Physician. javier 13:30 Triage completed. iw 13:32 Arm band placed on. iw 14:51 Feli Sifuentes, RN is Primary Nurse. ph 14:52 CBC with Diff Sent. javier 14:52 CMP Sent. javier 14:52 Lipase Sent. javier 14:52 Urine Microscopic Only Sent. javier 15:23 SARS RAPID Sent. iw 15:30 Juliano Schulz MD is Hospitalizing Provider. javier 15:50 Adalberto Herrmann MD is Hospitalizing Provider. javier 16:03 Patient has correct armband on for positive identification. Bed in low position. Call ph light in reach. Side rails up X 1. Pulse ox on. NIBP on. Door closed. Noise minimized. Warm blanket given. 16:40 No provider procedures requiring assistance completed. Patient admitted, IV remains in ph place. Administered Medications: 14:48 Drug: Ondansetron IVP 4 mg Route: IVP; Site: right antecubital; ph 16:27 Follow up: Response: No adverse reaction ph 14:54 Drug: Ondansetron IVP 4 mg Route: IVP; Site: right antecubital; iw 15:30 Follow up: Response: No adverse reaction ph 14:54 Drug: morphine IVP or IV 4 mg Route: IVP; Infused Over: 4 mins; Site: right antecubital;iw 15:30 Follow up: Response: No adverse reaction; Pain is unchanged, physician notified ph 15:50 Drug: HYDROmorphone IVP 1 mg Route: IVP; Site: right antecubital; ph 16:28 Follow up: Response: No adverse reaction; Pain is decreased; RASS: Drowsy (-1) ph 16:01 Drug: Piperacillin-Tazobactam IVPB 3.375 grams Route: IVPB; Infused Over: 60 mins; ph Site: right antecubital; 16:28 Follow up: Response: No adverse reaction; IV Status: Infusion continued upon admission ph 16:01 Drug: NS 0.9% IV 1000 ml Route: IV; Rate: 1 bolus; Site: right antecubital; ph 16:27 Follow up: Response: No adverse reaction; IV Intake: 1000ml ph 16:28 Follow up: Response: No adverse reaction; IV Intake: 1000ml ph 16:28 Follow up: Response: No adverse reaction ph 16:31 Not Given (Other Intervention Used): NS 0.9% IV 1000 ml IV at 1 bolus Per protocol; ph 1000 mL bolus Medication: 16:02 VIS not applicable for this client. ph Intake: 16:27 IV: 1000ml; Total: 1000ml. ph 16:28 IV: 1000ml; Total: 2000ml. ph Outcome: 15:33 Decision to Hospitalize by Provider. javier 16:41 Patient left the ED. ph 16:41 Admitted to OR accompanied by nurse, family with patient, via wheelchair, with chart. ph 16:41 Condition: stable 16:41 Instructed on the need for admit. Signatures: Jake Streeter MD MD cha Williams, Irene, RN RN Feli Sifuentes RN RN Ynes Hansen
== END 2022-05-27 10:19 | disposition home or self-care (01) | DRG 340 ==
LOC: ER 13:18 → ERHOLD 15:35 → 4TH 17:44 → OBSVTOIN 05-24 08:46
PROVIDERS: ADMIT Surgery; ATTEND Hospitalist
PROC: 0DTJ4ZZ Resection of Appendix, Percutaneous Endoscopic Approach (ICD-10-PCS; principal; 2022-05-23 17:00)
DX: K35.32 Acute appendicitis with perforation, localized peritonitis, and gangrene, without abscess (principal); I10 Essential (primary) hypertension; K59.00 Constipation, unspecified; Z79.899 Other long term (current) drug therapy; Z20.822 Contact with and (suspected) exposure to COVID-19
CPT/HCPCS: 36415; 71045; 74177; 76830; 80048; 80053; 80076; 81003; 81015; 82105; 82947; 83690; 83735; 84100; 85025; 87811; 88108; 88304; 88305; 93005; 94010; 96365; 96375; 99285; G0378; J1100; J1170; J1335; J1644; J2001; J2405; J2543; J2704; J2710; J3010; J3475; J7030; J7799; Q9967

== ENCOUNTER → 2023-03-08 | Emergency (ER) | payer SELFPAY ==
[~2023-03-08] MED LIST: CLINDAMYCIN 900MG/D5W 900 MG/50 ML IVPB IV ONE; HYDROCODONE/APAP 5/325 MG TAB ONE; MORPHINE 4 MG/ML SYR ONE; ONDANSETRON 4 MG/2 ML VIAL ONE
[2023-03-08 15:34] LABS: Absolute Lymphocytes (CBC) 2.2 K/uL (0.7-4.9); Hematocrit 41.6 % (36.0-45.0); Lymphocytes % 13.7 % (15.3-44.8); MPV 7.5 fL (7.6-11.3); Platelets 239 thou/uL (152-406); RBC Red Blood Cell Count 4.84 M/uL (3.86-4.86)
[2023-03-08 15:47] LABS: Protime INR 1.09
[2023-03-08 15:50] LABS: Albumin 3.1 g/dL (3.4-5.0); Bilirubin Total 0.3 mg/dL (0.2-1.0); Potassium 3.8 mEq/L (3.5-5.1); Protein, Total 7.2 g/dL (6.4-8.2)
[2023-03-08 16:13] LABS: Specific Gravity < 1.005 (1.005-1.030)
--- NOTE | 2023-03-08 17:23 | RAD REPORT ---
EXAM DESCRIPTION: CT - Soft Tissue Neck W/Contr CLINICAL HISTORY: facial swelling, dental abscess COMPARISON: No comparisons TECHNIQUE: Thin axial CT images of the neck, performed following intravenous administration of 100 mL Isovue-300. Multiplanar reformats were generated and reviewed. All CT scans are performed using dose optimization technique as appropriate and may include automated exposure control or mA/KV adjustment according to patient size. FINDINGS: Periapical lucencies and a collection along the roots of the posterior-most left mandibula r molar. Irregular linear lucency extending to the crown of the molar, which may be fractured. Cortic al defect along the lingual cortex of the mandible at that level, see series 201 image 32, with adjac ent periosteal reaction. Subperiosteal collection along the lower margin of the mandibular body, measuring 2.1 x 1.2 cm in gre atest axial dimension. There is extension of a lenticular component of the collection along the bucca l cortex of the mandible, measuring 2.4 cm in greatest AP dimension and 4 mm in thickness. Pronounced overlying subcutaneous and deep soft tissue swelling with fat stranding and focal platysma thickenin g in that region. Mildly prominent bilateral cervical lymph nodes, likely reactive. Nasopharyngeal tissues are normal in appearance. Fossa Rosenmller are normal. Parapharyngeal fat triangles are symmetric. Tongue base structures are normal. Epiglottis and aryepiglottic folds are normal. Piriform sinuses are well aerated. The vocal cords are normal in appearance. No other suspicious adenopathy. Salivary glands are normal in appearance. Incidentally noted left thyroid nodule measuring 9 mm. Upper lung avilez are clear. Included intracranial contents are unremarkable. IMPRESSION: Periapical abscess along the roots of the posterior-most left mandibular molar. Focal os seous defect extending from the abscess along the lingular cortex of the mandibular body. Irregular l inear lucency extending to the crown of the volar may represent a fracture. Subperiosteal collection along the lower margin of the ventricular body, with crescentic extension al chris the buccal cortex of the mandible, as described above. The findings were communicated to Srini Barrera on 03/08/2023 at 17:14 hours.
--- NOTE | 2023-03-08 18:33 | ER ---
Nurse's Notes [facility] Name: Gillian Almeida Age: 47 yrs Sex: Female : 1975 Arrival Date: 03/08/2023 Time: 13:09 Bed 14 Private MD: Diagnosis: Periapical abscess without sinus Presentation: 03/08 13:29 Chief complaint: Patient states: Left lower jaw pain and swelling for 4 days. On ll1 amoxicillin for 3 days, not helping yet. Coronavirus screen: Client denies travel out of the [place] in the last 14 days. At this time, the client does not indicate any symptoms associated with coronavirus-19. Ebola Screen: Patient denies travel to an Ebola-affected area in the 21 days before illness onset. Initial Sepsis Screen: Does the patient meet any 2 criteria? No. Patient's initial sepsis screen is negative. Does the patient have a suspected source of infection? Yes: Other: tooth/gum pain. Risk Assessment: Do you want to hurt yourself or someone else? Patient reports no desire to harm self or others. Onset of symptoms was March 05, 2023. 13:29 Method Of Arrival: Ambulatory ll1 13:29 Acuity: JAIDA 3 ll1 Triage Assessment: 13:31 General: Appears uncomfortable, Behavior is calm, cooperative, appropriate for age. ll1 Pain: Complains of pain in L lower jaw Quality of pain is described as aching, throbbing. EENT: cracked molar. Historical: - Allergies: 13:31 No Known Allergies; ll1 - PMHx: 13:31 adhd; depressive disorder; Hypertensive disorder; ll1 - PSHx: 13:31 Appendectomy; ll1 - Immunization history:: Adult Immunizations up to date. - Social history:: Smoking status: Patient reports the use of cigarette tobacco products, smokes one-half pack cigarettes per day. Screenin:04 [facility] ED Fall Risk Assessment (Adult) History of falling in the last 3 months, cm10 including since admission No falls in past 3 months (0 pts) Confusion or Disorientation No (0 pts) Intoxicated or Sedated No (0 pts) Impaired Gait No (0 pts) Mobility Assist Device Used No (0 pt) Altered Elimination No (0 pt) Score/Fall Risk Level 0 - 2 = Low Risk Oriented to surroundings, Maintained a safe environment, Hourly rounding (assess needs \T\ fall precautionary measures) done. Abuse screen: Denies threats or abuse. Denies injuries from another. Nutritional screening: No deficits noted. Tuberculosis screening: No symptoms or risk factors identified. Assessment: 18:53 Reassessment: Patient appears in no apparent distress at this time. Patient and/or iw family updated on plan of care and expected duration. Pain level reassessed. Patient is alert, oriented x 3, equal unlabored respirations, skin warm/dry/pink. Vital Signs: 13:29 BP 178 / 105; Pulse 102; Resp 18; Temp 99; Pulse Ox 100% ; ll1 15:45 BP 143 / 96; Pulse 96; Resp 16; Pulse Ox 100% on R/A; cm10 16:00 BP 144 / 92; Pulse 90; Resp 16; Pulse Ox 98% on R/A; cm10 17:12 Weight 90.72 kg; cm10 ED Course: 13:11 Patient arrived in ED. mr 13:12 Page Gomes PA-C [facility]. sb4 13:12 Srini Barrera MD is Attending Physician. sb4 13:24 Arm band placed on. ll1 13:31 Triage completed. ll1 16:29 Soft Tissue Neck W/Contr CT In Process Unspecified. EDMS 17:04 Patient has correct armband on for positive identification. Bed in low position. Call cm10 light in reach. Side rails up X 1. Provided Education on: ER process and procedures. . 17:04 No provider procedures requiring assistance completed. cm10 17:53 Devika Huber, RN is Primary Nurse. cm10 18:33 Maliha Maldonado MD is Referral Physician. sb4 18:53 IV discontinued, intact, bleeding controlled, No redness/swelling at site. Pressure iw dressing applied. Administered Medications: 15:51 Drug: morphine IVP or IV 4 mg IVP once over 4 mins Route: IVP; Infused Over: 4 mins; cm10 Site: right antecubital; 17:05 Follow up: Response: No adverse reaction cm10 15:51 Drug: Ondansetron IVP 4 mg IVP once; over 2 minutes Route: IVP; Site: right antecubital;cm10 17:05 Follow up: Response: No adverse reaction cm10 17:13 Drug: HYDROcodone-acetaminophen PO 5 mg-325 mg 2 tabs PO once Route: PO; cm10 17:53 Follow up: Response: No adverse reaction cm10 17:27 Drug: Clindamycin IVPB 900 mg IVPB once over 30 mins; (mix in 50 mL) Route: IVPB; cm10 Infused Over: 30 mins; Site: left antecubital; 17:53 Follow up: Response: No adverse reaction; IV Status: Completed infusion; IV Intake: [id number] Medication: 17:04 VIS not applicable for this client. cm10 Intake: 17:53 IV: 50ml; Total: 50ml. cm10 Outcome: 18:33 Discharge ordered by . sb4 18:53 Discharged to home ambulatory, with family, iw 18:53 Condition: good 18:53 Discharge instructions given to patient, family, Instructed on discharge instructions, follow up and referral plans. medication usage, Demonstrated understanding of instructions, follow-up care, medications, Prescriptions given X 4, 18:54 Patient left the ED. iw Signatures: Dispatcher [employer] EDAK Claudia Marques, Reg Reg mr Kirstie Beatty, RN RN iw Terrell Jasmine RN RN ll1 Page Gomes PA-Caitlyn PA-C Devika Marsh, RN RN cm10 Corrections: (The following items were deleted from the chart) 13:32 13:31 Social history: Smoking status: Patient denies any tobacco usage or history of. [id number] ll1
--- NOTE | 2023-03-08 18:34 | EDPHYS ---
Physician Documentation [facility] Name: Gillian Almeida Age: 47 yrs Sex: Female : 1975 Arrival Date: 03/08/2023 Time: 13:09 Bed 14 Private MD: ED Physician Srini Barrera HPI: 03/08 13:39 This 47 yrs old Female presents to ER via Ambulatory with complaints of Facial Swelling.sb4 13:39 The patient presents with broken tooth/teeth, swelling. The problem is located in the sb4 lower left first molar. Onset: The symptoms/episode began/occurred 2 month(s) ago. Duration: The symptoms are continuous, and are steadily getting worse. Modifying factors: the symptoms are aggravated by chewing, food. Associated signs and symptoms: Pertinent positives: pain, swelling, facial, Pertinent negatives: chills, fever. 13:40 Patient has had broken left lower molar for 2 months now. She has seen her dentist but 4 cannot afford the extraction. She states she has been on antibiotics intermittently but the swelling in her face is slowly getting worse. She denies any fever or chills. She is a daily smoker. Historical: - Allergies: 13:31 No Known Allergies; ll1 - PMHx: 13:31 adhd; depressive disorder; Hypertensive disorder; ll1 - PSHx: 13:31 Appendectomy; ll1 - Immunization history:: Adult Immunizations up to date. - Social history:: Smoking status: Patient reports the use of cigarette tobacco products, smokes one-half pack cigarettes per day. ROS: 13:40 Constitutional: Negative for fever, chills, and weight loss, sb4 13:40 ENT: Positive for dental pain, Facial swelling, 13:40 All other systems are negative, Exam: 13:40 Constitutional: This is a well developed, well nourished patient who is awake, alert, sb4 and in no acute distress. Head/Face: Normocephalic, atraumatic. Eyes: Extra-ocular motions intact. Periorbital areas with no swelling, redness, or edema. Cardiovascular: Regular rate and rhythm with a normal S1 and S2. Respiratory: Lungs have equal breath sounds bilaterally, clear to auscultation and percussion. No rales, rhonchi or wheezes noted. No increased work of breathing, no retractions or nasal flaring. Abdomen/GI: Soft, non-tender, no distension. MS/ Extremity: Pulses equal, no cyanosis. Neurovascular intact. Full, normal range of motion. Neuro: Awake and alert, GCS 15, oriented to person, place, time, and situation. Motor strength 5/5 in all extremities. Sensory grossly intact. 13:40 ENT: Dental exam: fractured teeth are noted, specifically the lower left first molar (#19), pain, 13:40 Skin: Facial swelling, fluctuance, tenderness left mandible. warm without erythema. Vital Signs: 13:29 BP 178 / 105; Pulse 102; Resp 18; Temp 99; Pulse Ox 100% ; ll1 15:45 BP 143 / 96; Pulse 96; Resp 16; Pulse Ox 100% on R/A; cm10 16:00 BP 144 / 92; Pulse 90; Resp 16; Pulse Ox 98% on R/A; cm10 17:12 Weight 90.72 kg; cm10 MDM: 13:29 Patient medically screened. sb4 13:40 Differential diagnosis: dental abscess. sb4 18:36 Data reviewed: vital signs, nurses notes, lab test result(s), radiologic studies, I sb4 have discussed the patient's presentation/case with the attending Emergency Department Physician; and as a result, I will discharge patient. Consideration of Admission/Observation Escalation of care including admission/observation considered. Management of patient was discussed with the following: Tumbler Plater: Dr. Maldonado, ENT, recommended clindamycin, peridex mouth wash, medrol dose pack, and will see patient in office on March 14. Care significantly affected by the following chronic conditions: Hypertension. Counseling: I had a detailed discussion with the patient and/or guardian regarding the historical points, exam findings, and any diagnostic results supporting the discharge/admit diagnosis, the presence of at least one elevated blood pressure reading (>120/80) during this emergency department visit, lab results, radiology results, the need for outpatient follow up, an ENT specialist, to return to the emergency department if symptoms worsen or persist or if there are any questions or concerns that arise at home. 03/08 13:35 Order name: Blood Culture Adult (2) sb4 03/08 13:35 Order name: CBC with Diff; Complete Time: 15:46 sb4 03/08 13:35 Order name: CMP; Complete Time: 15:54 sb4 03/08 13:35 Order name: Lactate w/ 2H reflex if indic.; Complete Time: 15:58 sb4 03/08 13:35 Order name: Protime (+inr); Complete Time: 15:54 sb4 03/08 13:35 Order name: Ptt, Activated; Complete Time: 15:54 sb4 03/08 15:08 Order name: Test, Urine; Complete Time: 16:15 sb4 03/08 13:35 Order name: Soft Tissue Neck W/Contr CT; Complete Time: 17:24 sb4 03/08 13:35 Order name: Cardiac monitoring; Complete Time: 15:51 sb4 03/08 13:35 Order name: IV Saline Lock - Large Bore; Complete Time: 15:51 sb4 03/08 13:35 Order name: Labs collected and sent; Complete Time: 15:51 sb4 Administered Medications: 15:51 Drug: morphine IVP or IV 4 mg IVP once over 4 mins Route: IVP; Infused Over: 4 mins; cm10 Site: right antecubital; 17:05 Follow up: Response: No adverse reaction cm10 15:51 Drug: Ondansetron IVP 4 mg IVP once; over 2 minutes Route: IVP; Site: right antecubital;cm10 17:05 Follow up: Response: No adverse reaction cm10 17:13 Drug: HYDROcodone-acetaminophen PO 5 mg-325 mg 2 tabs PO once Route: PO; cm10 17:53 Follow up: Response: No adverse reaction cm10 17:27 Drug: Clindamycin IVPB 900 mg IVPB once over 30 mins; (mix in 50 mL) Route: IVPB; cm10 Infused Over: 30 mins; Site: left antecubital; 17:53 Follow up: Response: No adverse reaction; IV Status: Completed infusion; IV Intake: [id number] Disposition: 19:10 Co-signature as Attending Physician, Srini Barrera MD I reviewed the patient's care rt provided by the Advanced Practice Provider and agree with the diagnosis and treatment plan. Disposition Summary: 03/08/23 18:33 Discharge Ordered Notes: Location: Home sb4 Problem: new sb4 Symptoms: have improved sb4 Condition: Stable sb4 Diagnosis - Periapical abscess without sinus sb4 Followup: sb4 - With: Maliha Maldonado MD - When: 1 week - Reason: Recheck today's complaints, Continuance of care, Re-evaluation by your physician Discharge Instructions: - Discharge Summary Sheet sb4 - Dental Abscess sb4 Forms: - Medication Reconciliation Form sb4 - Thank You Letter sb4 - Antibiotic Education sb4 - Prescription Opioid Use sb4 - Patient Portal Instructions sb4 - Leadership Thank You Letter sb4 Prescriptions: - Peridex 0.12 % Mucous Membrane Mouthwash - swish 15 milliliter MUCOUS MEMBRANE route 3 times per day; 350 milliliter; sb4 Refills: 0, Product Selection Permitted - Clindamycin HCl 300 mg Oral Capsule - take 1 capsule ORAL route every 6 hours for 10 days; 40 capsule; Refills: 0, sb4 Product Selection Permitted - Tramadol 50 mg Oral Tablet - take 1 tablet ORAL route every 8 hours as needed; 12 tablet; Refills: 0, sb4 Product Selection Permitted - Medrol (Jet) 4 mg Oral Tablets, Dose Pack - take 1 tablet ORAL route as directed - follow package instructions; 1 packet; sb4 Refills: 0, Product Selection Permitted Signatures: Dispatcher [employer] EDTerrell Fischer, RN RN ll1 Page Gomes, PAStacey PA-C sb4 Srini Barrera MD MD rt Devika Huber, RN RN cm10 Corrections: (The following items were deleted from the chart) 13:32 13:31 Social history: Smoking status: Patient denies any tobacco usage or history of. ll1 ll1
[2023-03-08 21:58] VITALS: TEMP 99
[2023-03-08 22:04] VITALS: BP 144/92; O2SAT 98
== END ==
LOC: ER 13:09
DX: K04.7 Periapical abscess without sinus (principal)
CPT/HCPCS: 36415; 70491; 80053; 81025; 83605; 85025; 85610; 85730; 87040; 87205; 96365; 96375; 99284; J2405; Q9967

== ENCOUNTER 2023-11-07 11:33 | Emergency (ER) | payer SELFPAY ==
--- OUTSIDE RECORDS SUMMARY | 2023-11-07 11:36 | XMS REPORT | Continuity of Care Document ---
Author Name Unknown Address [address] [place] [address] [place] [address] [employer]connect Address [address] [place] [address]. [address] [place] [address] Care Team Providers Care Director Marketing Name Role Phone Unavailable Unavailable Unavailable Encounters Start Date/Time End Date/Time Encounter Type Admission Type Attending Clinicians Care Facility Care Department Encounter ID Source 2023-03-21 13:16:45 2023-03-21 13:16:45 Outpatient [facility] [id number] Janusz Dumont
[2023-11-07] MEDS ORDERED: TETRACAINE HCL 0.5% 4ML OPTH ONE (12:19)
[2023-11-07] MEDS ORDERED: FLUORESCEIN SODIUM 1 MG/WRAP ONE (12:19)
--- NOTE | 2023-11-07 13:19 | EDPHYS ---
Physician Documentation [facility] Name: Gillian Almeida Age: 48 yrs Sex: Female : 1975 Arrival Date: 11/07/2023 Time: 11:33 Bed 9 Private MD: ED Physician Srini Barrera HPI: 11/06 15:19 This 48 yrs old Female presents to ER via Ambulatory with complaints of Eye Problem - rt Hit With Branch. 15:19 Patient presents to the ED 1 day after beginning in the branch on the left eye. Reports rt pain to the area. Denies other injury, acute complaints, symptoms are moderate in severity, no other aggravating or elevating factors.. SPORT INTERN: 14:08 LMP N/A - Post-menopause, Not me1 Historical: - Allergies: 11:48 No Known Allergies; ph - PMHx: 11:48 adhd; depressive disorder; Hypertensive disorder; ph - PSHx: 11:48 Appendectomy; ph - Immunization history:: Adult Immunizations unknown. - Infectious Disease History:: Denies. - Social history:: Smoking status: unknown. - Family history:: not pertinent. ROS: 15:19 Constitutional: Negative for fever, chills, and weight loss, Cardiovascular: Negative rt for chest pain, palpitations, and edema, Respiratory: Negative for shortness of breath, cough, wheezing, and pleuritic chest pain, Abdomen/GI: Negative for abdominal pain, nausea, vomiting, diarrhea, and constipation, Skin: Negative for injury, rash, and discoloration, Neuro: Negative for headache, weakness, numbness, tingling, and seizure, 15:19 Eyes: Positive for pain, redness, Exam: 15:19 Constitutional: This is a well developed, well nourished patient who is awake, alert, rt and in no acute distress. Head/Face: Normocephalic, atraumatic. Skin: Warm, dry with normal turgor. Normal color with no rashes, no lesions, and no evidence of cellulitis. MS/ Extremity: Pulses equal, no cyanosis. Neurovascular intact. Full, normal range of motion. Neuro: Awake and alert, GCS 15, oriented to person, place, time, and situation. Cranial nerves II-XII grossly intact. Motor strength 5/5 in all extremities. Sensory grossly intact. Cerebellar exam normal. Normal gait. 15:19 Eyes: Conjunctival irritation on the left eye, extraocular muscles are intact, pupils equally round and reactive to light. There is a focal area of fluorescein uptake at the center of the eye, eyelids were everted, no foreign bodies were identified. Jose Martin sign is negative.. Vital Signs: 11:52 BP 128 / 78; Pulse 89; Resp 18; Temp 97.8; Pulse Ox 99% on R/A; ph 14:08 BP 127 / 82; Pulse 81; Resp 16; Temp 98.1; Pulse Ox 100% on R/A; de1 MDM: 11:46 Patient medically screened. rt 15:19 Differential diagnosis: Corneal abrasion of Foreign body in. Data reviewed: vital rt signs, nurses notes. Test considered but Not performed: CT: Patient has corneal abrasion with no clinical evidence to suggest open globe, CT scan is not acute. Counseling: I had a detailed discussion with the patient and/or guardian regarding the historical points, exam findings, and any diagnostic results supporting the discharge/admit diagnosis, the need for outpatient follow up. 11/06 11:52 Order name: Eye Tray; Complete Time: 12:23 rt 11/06 11:52 Order name: Fluoresene Opth strip; Complete Time: 12:23 rt Administered Medications: 13:36 Drug: Tetracaine Ophthalmic Drops 0.5 % 1 drops Ophthalmic once {Note: administered by de1 Dr Barrera.} Route: Ophthalmic; Site: left eye; 14:05 Follow up: Response: No adverse reaction [facility] Disposition Summary: 11/07/23 13:18 Discharge Ordered Notes: Location: Home rt Problem: new rt Symptoms: have improved rt Condition: Stable rt Diagnosis - Injury of conjunctiva and corneal abrasion without foreign body, left eye rt Followup: rt - With: Yazan Nieves MD - When: 2 - 3 days - Reason: Followup: rt - With: Vipin Ram DO - When: 2 - 3 days - Reason: Discharge Instructions: - Discharge Summary Sheet rt - Corneal Abrasion rt Forms: - Medication Reconciliation Form rt - Antibiotic Education rt - Prescription Opioid Use rt - Patient Portal Instructions rt - Leadership Thank You Letter rt Prescriptions: - Erythromycin 5 mg/gram (0.5 %) Ophthalmic ointment - apply 1 centimeter OPHTHALMIC route 2-3 times daily for 7 days Please dispense rt QS for 7 days; 1 Each; Refills: 0, Product Selection Permitted Signatures: Feli Sifuentes, RN RN Srini Barrera MD MD rt Colette Mclean, LJ RN me1
--- NOTE | 2023-11-07 13:19 | ER ---
Nurse's Notes [facility] Name: Gillian Almeida Age: 48 yrs Sex: Female : 1975 Arrival Date: 11/07/2023 Time: 11:33 Bed 9 Private MD: Diagnosis: Injury of conjunctiva and corneal abrasion without foreign body, left eye Presentation: 11/06 11:48 Chief complaint: Patient states: Hit in L eye w/ tree branch yesterday, eye lid ph swlollen. Coronavirus screen: Vaccine status: Patient reports receiving the 2nd dose of the covid vaccine. Ebola Screen: No symptoms or risks identified at this time. Initial Sepsis Screen: Does the patient meet any 2 criteria? No. Patient's initial sepsis screen is negative. Does the patient have a suspected source of infection? No. Patient's initial sepsis screen is negative. Risk Assessment: Do you want to hurt yourself or someone else? Patient reports no desire to harm self or others. Onset of symptoms was November 07, 2023. 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 - Infectious Disease History:: Denies. - Social history:: Smoking status: unknown. - Family history:: not pertinent. Screenin:43 [facility] ED Fall Risk Assessment (Adult) History of falling in the last 3 months, me1 including since admission No falls in past 3 months (0 pts) Confusion or Disorientation No (0 pts) Intoxicated or Sedated No (0 pts) Impaired Gait No (0 pts) Mobility Assist Device Used No (0 pt) Altered Elimination No (0 pt) Score/Fall Risk Level 0 - 2 = Low Risk Maintained a safe environment, Provided non-skid footwear, Hourly rounding (assess needs \T\ fall precautionary measures) done. Abuse screen: Denies threats or abuse. Nutritional screening: No deficits noted. Tuberculosis screening: No symptoms or risk factors identified. Assessment: 12:40 General: Appears uncomfortable, well groomed, well developed, well nourished, Behavior me1 is calm, cooperative, appropriate for age, Reports Hit in L eye w/ tree branch yesterday, eye lid swollen. Reports vision in the left eye is blurry and that eye is sensitive to light. 12:43 Pain: Complains of pain in left eye Pain does not radiate. Pain currently is 6 out of me1 10 on a pain scale. Quality of pain is described as stinging, Pain began suddenly, 1 day ago. Is continuous. Neuro: Level of Consciousness is awake, alert, obeys commands, Oriented to person, place, time, situation, Appropriate for age. Cardiovascular: Patient's skin is warm and dry. Respiratory: Airway is patent Respiratory effort is even, unlabored, Respiratory pattern is regular, symmetrical. GI: No signs and/or symptoms were reported involving the gastrointestinal system. : No signs and/or symptoms were reported regarding the genitourinary system. EENT: Reports blurred vision in left eye since yesterday pain photophobia. Derm: Skin is intact, is healthy with good turgor, Skin is pink, warm \T\ dry. Musculoskeletal: No signs and/or symptoms reported regarding the musculoskeletal system. Vital Signs: 11:52 BP 128 / 78; Pulse 89; Resp 18; Temp 97.8; Pulse Ox 99% on R/A; ph 14:08 BP 127 / 82; Pulse 81; Resp 16; Temp 98.1; Pulse Ox 100% on R/A; me1 ED Course: 11:37 Patient arrived in ED. mg5 11:41 Srini Barrera MD is Attending Physician. rt 11:48 Triage completed. ph 11:49 Arm band placed on Patient placed in waiting room, Patient notified of wait time. ph 12:28 Colette Mclean, RN is Primary Nurse. me1 12:43 Patient has correct armband on for positive identification. Bed in low position. Call me1 light in reach. Side rails up X2. Provided Education on: POC. Verbalized understanding. . 12:43 No provider procedures requiring assistance completed. me1 13:17 Yazan Nieves MD is Referral Physician. rt 13:17 Vipin Ram DO is Referral Physician. rt 14:08 Patient did not have IV access during this emergency room visit. me1 Administered Medications: 13:36 Drug: Tetracaine Ophthalmic Drops 0.5 % 1 drops Ophthalmic once {Note: administered by me1 Dr Barrera.} Route: Ophthalmic; Site: left eye; 14:05 Follow up: Response: No adverse reaction me1 Medication: 12:43 VIS not applicable for this client. me1 Outcome: 13:18 Discharge ordered by . rt 14:08 Discharged to home ambulatory, me1 14:08 Condition: stable 14:08 Discharge instructions given to patient, Instructed on discharge instructions, follow up and referral plans. medication usage, Demonstrated understanding of instructions, follow-up care, medications, Prescriptions given X 1, 14:09 Patient left the ED. me1 Signatures: Feli Sifuentes RN RN ph Srini Barrera MD MD rt Colette Mclean RN RN me1 Kath Benton mg5 Corrections: (The following items were deleted from the chart) 12:43 11:48 Chief complaint: Patient states: Hit in L eye w/ tree branch yesterday, eye lid me1 sindhu ph 12:46 12:40 General: Appears uncomfortable, well groomed, well developed, well nourished, me1 Behavior is calm, cooperative, appropriate for age, Reports me1
[2023-11-07 14:18] VITALS: BP 128/78; TEMP 97.8; O2SAT 99
== END 2023-11-07 14:09 | disposition home or self-care (01) ==
LOC: ER 11:33
DX: S05.02XA Injury of conjunctiva and corneal abrasion without foreign body, left eye, initial encounter (principal)

== ENCOUNTER 2024-03-10 16:56 | Emergency (ER) | payer SELFPAY ==
--- OUTSIDE RECORDS SUMMARY | 2024-03-10 16:58 | XMS REPORT | Continuity of Care Document ---
Author Name Unknown Address [address] [place] [address] [place] [place] [address] [employer]connect Address [address] [place] [address]. [address] [place] [address] Care Team Providers Care Transportation Director Name Role Phone Unavailable Unavailable Unavailable Encounters Start Date/Time End Date/Time Encounter Type Admission Type Attending Clinicians Care Facility Care Department Encounter ID Source 2023-03-21 13:16:45 2023-03-21 13:16:45 Outpatient [facility] [id number] Janusz Dumont
--- NOTE | 2024-03-10 18:15 | RAD REPORT ---
EXAMINATION: CT HEAD WITHOUT CONTRAST CT CERVICAL SPINE WITHOUT CONTRAST CLINICAL INDICATION: Head and neck injury status post fall. Head and neck pain TECHNIQUE: Axial CT images from the skull base to the vertex without intravenous contrast. Axial CT i mages through the cervical spine were obtained without intravenous contrast. Sagittal and coronal reformatted images were created from the data set. Coronal and sagittal reformatted images were creat ed from the data set. One or more of the following dose reduction techniques were used: Automated exposure control, adjustment of the mA and/or kV according to patient size, and/or iterative reconstr uction. Unless otherwise specified, incidental findings do not require dedicated imaging follow-up. [id number]. Comparison: CT head 2011 FINDINGS: An intracranial bleed is not seen. Ventricles are normal in caliber. No significant hypodensity within the brain No extra-axial fluid collection. No fluid within the sinuses/mastoids No fracture or dislocation is seen involving the cervical spine. IMPRESSION: No acute intracranial abnormality noted A cervical fracture is not seen. If the patient continues to have symptoms to suggest acute QUANTITATIVE CONSULTANT/spinal pathology then MRI would be rec ommended
--- NOTE | 2024-03-10 18:22 | RAD REPORT ---
EXAM: CT CHEST, ABDOMEN AND PELVIS WITHOUT CONTRAST CLINICAL INDICATION: Chest and abdominal pain status post fall TECHNIQUE: CT chest, abdomen and pelvis was performed, without IV contrast, as per department protoco l. Axial, sagittal and coronal reconstructions were obtained. One or more of the following dose reduction techniques were used: Automated exposure control, adjustment of the mA and/or kV according to the patient size, and/or iterative reconstruction. Unless otherwise specified, incidental findings do not require dedicated imaging follow-up. The lack of IV and oral contrast limits evaluation of the mediastinum, gloria, vessels, organs and carlin l. COMPARISON: CT abdomen 2022 FINDINGS: No pulmonary contusion. No mediastinal hematoma noted. No pleural effusion. No pericardial effusion. Liver, spleen, pancreas, adrenals kidneys and bladder do not demonstrate an acute traumatic injury. The left kidney is small which may be congenital. There is no evidence of diverticulitis IMPRESSION: No acute traumatic injury involving the chest/abdomen pelvis seen.
--- NOTE | 2024-03-10 18:30 | RAD REPORT ---
Exam:Humerus Right CLINICAL HISTORY: Right arm pain FINDINGS: No fracture seen
--- NOTE | 2024-03-10 18:31 | RAD REPORT ---
Exam:Forearm Right Clinical history: Right forearm pain Findings: No fracture or dislocation seen.
--- NOTE | 2024-03-10 18:33 | RAD REPORT ---
Exam:Hand Right 3 View HISTORY: Right hand pain FINDINGS: No fracture or dislocation seen
--- NOTE | 2024-03-10 18:34 | RAD REPORT ---
EXAMINATION: Tib Fib Right CLINICAL INDICATION: Leg pain FINDINGS: No fracture seen
[2024-03-10] MEDS ORDERED: HYDROCODONE/APAP 5/325 MG TAB ONE (18:44)
[2024-03-10] MEDS ORDERED: KETOROLAC 30 MG/ML INJ ONE (18:44)
--- NOTE | 2024-03-10 18:44 | EDPHYS ---
Physician Documentation [facility] Name: Gillian Almeida Age: 48 yrs Sex: Female : 1975 Arrival Date: 03/10/2024 Time: 16:56 Bed 19 Private MD: ED Physician Jake Streeter HPI: 03/10 17:03 This 48 yrs old Female presents to ER via Unassigned with complaints of Fall Injury. kb 17:03 Pt is a 48 year old female who presents for fall that occurred 3 days ago. States she kb tripped and fell onto right side. States she has been having double vision intermittently since then. Reports headache, right arm pain and right lower extremity. States she has been ambulatory, but that makes the pain worse. States she is unsure if she had LOC, but if so it was only for a second. . 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 - Infectious Disease History:: Denies. - Social history:: Smoking status: Patient reports the use of cigarette tobacco products, smokes one pack cigarettes per day. ROS: 17:03 Constitutional: As per HPI kb Exam: 17:12 Constitutional: This is a well developed, well nourished patient who is awake, alert, kb and in no acute distress. Head/Face: Normocephalic, atraumatic. ENT: Moist Mucous membranes Cardiovascular: Regular rate Respiratory: Respirations even and unlabored. No increased work of breathing. Talking in full sentences Abdomen/GI: Soft, non-tender. No distention Skin: Warm, dry with normal turgor. Normal color. Neuro: Awake and alert, GCS 15, oriented to person, place, time, and situation. 17:12 Back: pain, that is mild, of the thoracic area and lumbar area, ROM is painful, vertebral tenderness, is appreciated at thoracic spine and lumbar spine, 17:12 Musculoskeletal/extremity: Extremities: grossly normal except: noted in the right iliac crest and right salas: pain, tenderness, noted in the right arm: ecchymosis, pain, tenderness, ROM: intact in all extremities, Circulation is intact in all extremities. Sensation intact. Weight bearing: able to fully bear weight, Vital Signs: 17:07 BP 132 / 94; Pulse 94; Resp 16; Temp 97.1; Pulse Ox 100% on R/A; hb 19:07 BP 128 / 91; Pulse 93; Resp 14; Temp 98.3; Pulse Ox 100% ; me1 MDM: 16:59 Medical Screening Exam initiated kb 17:13 Differential diagnosis: closed head injury, contusion, fracture. Data reviewed: vital kb signs, nurses notes. Historians other than the Patient: Parent: mother. 18:34 Counseling: I had a detailed discussion with the patient and/or guardian regarding the kb historical points, exam findings, and any diagnostic results supporting the discharge/admit diagnosis, radiology results, the need for outpatient follow up, a family practitioner, to return to the emergency department if symptoms worsen or persist or if there are any questions or concerns that arise at home. 03/10 17:10 Order name: CT Head C Spine; Complete Time: 18:17 kb 03/10 17:10 Order name: CT Chest Abdomen Pelvis W/O Contrast; Complete Time: 18:25 kb 03/10 17:10 Order name: Humerus Right XRAY; Complete Time: 18:33 kb 03/10 17:10 Order name: Forearm Right XRAY; Complete Time: 18:33 kb 03/10 17:10 Order name: Tib Fib Right XRAY; Complete Time: 18:34 kb 03/10 17:16 Order name: Hand Right 3 View XRAY; Complete Time: 18:33 kb Administered Medications: 18:48 Drug: Ketorolac IM 30 mg IM once Route: IM; Site: left deltoid; me1 19:06 Follow up: Response: No adverse reaction; Pain is decreased me1 18:48 Drug: HYDROcodone-acetaminophen PO 5 mg-325 mg 1 tabs PO once Route: PO; me1 19:07 Follow up: Response: No adverse reaction; Pain is decreased me1 Disposition Summary: 03/10/24 18:44 Discharge Ordered Notes: Location: Home kb Condition: Stable kb Diagnosis - Fall on same level, unspecified kb - Pain in right arm kb - Pain in right lower leg kb - Low back pain kb Followup: kb - With: Private Physician - When: 2 - 3 days - Reason: Recheck today's complaints, Continuance of care, Re-evaluation by your physician Followup: kb - With: Emergency Department - When: As needed - Reason: Worsening of condition Discharge Instructions: - Discharge Summary Sheet kb - Musculoskeletal Pain kb - Contusion, [id number] kb Forms: - Medication Reconciliation Form kb - Antibiotic Education kb - Prescription Opioid Use kb - Patient Portal Instructions kb - Leadership Thank You Letter kb Prescriptions: - Diclofenac Sodium 75 mg Oral tablet, delayed release (enteric coated) - take 1 tablet ORAL route 2 times per day As needed; 30 tablet; Refills: 0, kb Product Selection Permitted Addendum: 03/13/2024 12:40 Co-signature as Attending Physician, Jake Streeter MD I agree with the assessment and c dong plan of care. Signatures: Dispatcher [employer] EDMimi Patterson, ROTARY PLANER SET UP OPERATOR-C ROTARY PLANER SET UP OPERATOR-Jake Mancia MD MD cha Baxter, Heather, RN RN Colette Mclean RN RN me1 Corrections: (The following items were deleted from the chart) 03/10 17:11 17:11 Head C Spine MPR Wo Con+CT.RAD.BRZ ordered. EDMS EDMS 17:11 17:11 Chest Abdomen Pelvis Wo Con+CT.RAD.BRZ ordered. EDMS EDMS 17:11 17:11 Humerus Right+RAD.RAD.BRZ ordered. EDMS EDMS 17:11 17:11 Forearm Right+RAD.RAD.BRZ ordered. EDMS EDMS 17:11 17:11 Hand Right W Compar+RAD.RAD.BRZ ordered. EDMS EDMS 17:11 17:11 Tib Fib Right+RAD.RAD.BRZ ordered. EDMS EDMS
--- NOTE | 2024-03-10 18:44 | ER ---
Nurse's Notes [facility] Name: Gillian Almeida Age: 48 yrs Sex: Female : 1975 Arrival Date: 03/10/2024 Time: 16:56 Bed 19 Private MD: Diagnosis: Fall on same level, unspecified;Pain in right arm;Pain in right lower leg;Low back pain Presentation: 03/10 17:07 Chief complaint: Right sided pain after mechanical fall from standing 3 days ago. hb Coronavirus screen: At this time, the client does not indicate any symptoms associated with coronavirus-19. Ebola Screen: No symptoms or risks identified at this time. Initial Sepsis Screen: Does the patient meet any 2 criteria? No. Patient's initial sepsis screen is negative. Does the patient have a suspected source of infection? No. Patient's initial sepsis screen is negative. Risk Assessment: Do you want to hurt yourself or someone else? Patient reports no desire to harm self or others. Onset of symptoms was March 07, 2024. 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 - Infectious Disease History:: Denies. - Social history:: Smoking status: Patient reports the use of cigarette tobacco products, smokes one pack cigarettes per day. Screenin:40 [facility] ED Fall Risk Assessment (Adult) History of falling in the last 3 months, me1 including since admission No falls in past 3 months (0 pts) Confusion or Disorientation No (0 pts) Intoxicated or Sedated No (0 pts) Impaired Gait No (0 pts) Mobility Assist Device Used No (0 pt) Altered Elimination No (0 pt) Score/Fall Risk Level 0 - 2 = Low Risk Maintained a safe environment, Provided non-skid footwear, Hourly rounding (assess needs \T\ fall precautionary measures) done. Abuse screen: Denies threats or abuse. Nutritional screening: No deficits noted. Tuberculosis screening: No symptoms or risk factors identified. Assessment: 17:40 General: Appears comfortable, well groomed, well developed, well nourished, Behavior is me1 calm, cooperative, appropriate for age, Reports Right sided pain after mechanical fall from standing 3 days ago. Pain: Complains of pain in right arm and right iliac crest and right leg and pelvis and right hip and right salas and lumbar spine and thoracic spine and lumbar area and thoracic area Pain does not radiate. Pain currently is 7 out of 10 on a pain scale. Quality of pain is described as aching, Pain began 2-3 days ago. Is continuous. Neuro: Level of Consciousness is awake, alert, obeys commands, Oriented to person, place, time, situation, Appropriate for age. Cardiovascular: Patient's skin is warm and dry. Respiratory: Airway is patent Respiratory effort is even, unlabored, Respiratory pattern is regular, symmetrical. GI: No signs and/or symptoms were reported involving the gastrointestinal system. : No signs and/or symptoms were reported regarding the genitourinary system. EENT: No signs and/or symptoms were reported regarding the EENT system. Derm: Skin is healthy with good turgor, Skin is pink, warm \T\ dry. Bruising that is dark purple, on right arm and right leg. Musculoskeletal: Reports pain in right arm and right iliac crest and right leg and pelvis and right hip and right salas and lumbar spine and thoracic spine and lumbar area and thoracic area since a fall 3 days ago. Injury Description: trip and fall 3 days ago. Vital Signs: 17:07 BP 132 / 94; Pulse 94; Resp 16; Temp 97.1; Pulse Ox 100% on R/A; hb 19:07 BP 128 / 91; Pulse 93; Resp 14; Temp 98.3; Pulse Ox 100% ; me1 ED Course: 16:59 Patient arrived in ED. im 16:59 M[facility] Wells [facility]-C [facility] kb 16:59 Jake Streeter MD is Attending Physician. kb 17:08 Triage completed. hb 17:08 Arm band placed on. hb 17:33 Colette Mclean, LJ is Primary Nurse. me1 17:40 Patient has correct armband on for positive identification. Bed in low position. Call me1 light in reach. Side rails up X 1. Provided Education on: POC. Verbalized understanding.. Client placed on continuous cardiac and pulse oximetry monitoring. NIBP monitoring applied. Pulse ox on. NIBP on. 17:40 No provider procedures requiring assistance completed. Patient did not have IV access me1 during this emergency room visit. 18:06 CT Head C Spine In Process Unspecified. EDMS 18:07 CT Chest Abdomen Pelvis W/O Contrast In Process Unspecified. EDMS 18:11 Humerus Right XRAY In Process Unspecified. EDMS 18:11 Forearm Right XRAY In Process Unspecified. EDMS 18:11 Tib Fib Right XRAY In Process Unspecified. EDMS 18:11 Hand Right 3 View XRAY In Process Unspecified. EDMS Administered Medications: 18:48 Drug: Ketorolac IM 30 mg IM once Route: IM; Site: left deltoid; me1 19:06 Follow up: Response: No adverse reaction; Pain is decreased me1 18:48 Drug: HYDROcodone-acetaminophen PO 5 mg-325 mg 1 tabs PO once Route: PO; me1 19:07 Follow up: Response: No adverse reaction; Pain is decreased me1 Medication: 17:40 VIS not applicable for this client. me1 Outcome: 18:44 Discharge ordered by . cecilia 19:07 Discharged to home ambulatory, me1 19:07 Condition: stable 19:07 Discharge instructions given to patient, Instructed on discharge instructions, follow up and referral plans. medication usage, Demonstrated understanding of instructions, follow-up care, medications, Prescriptions given X 1, 19:08 Patient left the ED. me1 Signatures: Dispatcher [employer] Mimi Dougherty, BRIQUETTE OPERATOR-C BRIQUETTE OPERATOR-Deepika Mares RN RN Dedra Harden Michelle, RN RN me1 Corrections: (The following items were deleted from the chart) 17:09 17:07 Pulse 94bpm; Resp 16bpm; Pulse Ox 100% RA; Temp 97.1F; hb hb 17:40 17:07 Chief complaint: Right sided pain after mechanical fall from standing 3 days ago. me1 hb
[2024-03-10 19:20] VITALS: O2SAT 100
[2024-03-10 19:24] VITALS: BP 128/91; TEMP 98.3
== END 2024-03-10 19:08 | disposition home or self-care (01) ==
LOC: ER 16:56
DX: M79.601 Pain in right arm (principal); M79.661 Pain in right lower leg; M54.50 Low back pain, unspecified; W18.30XA Fall on same level, unspecified, initial encounter; R51.9 Headache, unspecified; F17.210 Nicotine dependence, cigarettes, uncomplicated
CPT/HCPCS: 70450; 71250; 72125; 74176; 96372; 99284

== ENCOUNTER 2024-07-27 16:09 | Emergency (ER) | payer SELFPAY ==
--- OUTSIDE RECORDS SUMMARY | 2024-07-27 16:13 | XMS REPORT | Continuity of Care Document ---
Author Name Unknown Address [address] [facility] [facility] [place] [address] [facility] Address [address] [facility] [place] [address] Care Team Providers Care Customer Program Manager Name Role Phone CLINIC, [facility] Primary Care Physician Unavailable Katarzyna Harris PA-C Attending Clinician [phone] KATARZYNA HARRIS Attending Clinician Unavailable KATARZYNA HARRIS Attending Clinician Unavailable YESICA MORA Attending Clinician Unavailab YESICA Gomes Attending Clinician Unavailab Yesica Gomes DO Attending Clinician [phone] Vineet Michael DO Attending Clinician [phone] VINEET MICHAEL Attending Clinician Unavailable VINEET MICHAEL Attending Clinician Unavailable VINEET MICHAEL Admitting Clinician Unavailable Allergies, Adverse Reactions, Alerts Allergy Name Allergy Type Status Severity Reaction(s) Onset Date Inactive Date Treating Clinician Comments Source NO KNOWN ALLERGIE S Drug Class Active [facility] Social History Social Habit Start Date Stop Date Quantity Comments Source Sexual orientation U [facility] History of Social function 2024-05-01 00:00:00 2024-05-01 00:00:00 [facility] Sex assigned at 1975 00:00:00 1975 00:00:00 [facility] Smoking Status Start Date Stop Date Source Tobacco smoking consumption unknown [facility] Medications Ordered Medication Name Filled Medication Name Start Date Stop Date Current Medication? Ordering Clinician Indication Dosage Frequency Signature (SIG) Comments Components Source dexamethaso ne sod phos PF injection 10 mg 04-30 20:45: 00 04-30 21:03 :00 No 10mg 10 mg, Oral, ONCE, 1 dose, On Sun04/30/24 at 1445, 1 mL [facility] butalbital- acetaminoph en-caff (ESGIC) 50-325-40 mg tablet 1 tablet 04-30 20:45: 00 04-30 20:57 :00 No 1{tbl} 1 tablet, Oral, ONCE, 1 dose, On Sun04/30/24 at 1445, NASH [facility] morpHINE (4 mg/mL) injection 4 mg 04-26 00:50: 00 04-26 01:37 :00 No 4mg 4 mg, Slow IV Push, ONCE, 1 dose, On Sun04/25/24 at 1900, STAT [facility] ondansetron (ZOFRAN (PF)) injection 4 mg 04-25 22:45: 00 04-25 22:41 :00 No 4mg 4 mg, Slow IV Push, ONCE, 1 dose, On Sun04/25/24 at 1645, Administer over 2-5 Minutes, 2 mL [facility] morpHINE (4 mg/mL) injection 4 mg 04-25 22:45: 00 04-25 22:40 :00 No 4mg 4 mg, Slow IV Push, ONCE, 1 dose, On Sun04/25/24 at 1645, STAT [facility] orphenadrin e 100 mg SR tablet 04-25 00:00: 00 Yes [id number] 100mg Take 1 tablet by mouth every 12 (twelve) hours. [facility] meloxicam 7.5 mg tablet 04-25 00:00: 00 Yes [id number] 7.5mg Take 1 tablet by mouth in the morning. [facility] HYDROcodone -acetaminop hen 7.5-325 mg per tablet 04-25 00:00: 00 Yes [id number] 1{tbl} Take 1-2 tablets by mouth every 6 (six) hours as needed for Pain. Indication s: acute pain [facility] Vital Signs Vital Name Observation Time Observation Value Comments S buzz Systolic blood pressure 2024-04-30 20:36:00 152 mm[Hg] [facility] Diastolic blood pressure 2024-04-30 20:36:00 100 mm[Hg] [facility] Heart rate 2024-04-30 20:36:00 102 /min [facility] Body temperature 2024-04-30 20:36:00 37 Marilyn [facility] Respiratory rate 2024-04-30 20:36:00 16 /min [facility] Body height 2024-04-30 20:36:00 157.5 cm [facility] Body weight 2024-04-30 20:36:00 72.576 kg [facility] BMI 2024-04-30 20:36:00 29.26 kg/m2 [facility] Oxygen saturation in Arterial blood by Pulse oximetry 2024-04-30 20:36:00 95 /min [facility] Systolic blood pressure 2024-04-26 01:35:00 127 mm[Hg] [facility] Diastolic blood pressure 2024-04-26 01:35:00 117 mm[Hg] [facility] Heart rate 2024-04-26 01:35:00 87 /min [facility] Body temperature 2024-04-26 01:35:00 36.94 Marilyn [facility] Respiratory rate 2024-04-26 01:35:00 18 /min [facility] Oxygen saturation in Arterial blood by Pulse oximetry 2024-04-26 01:35:00 99 /min [facility] Body height 2024-04-25 22:14:00 157.5 cm [facility] Body weight 2024-04-25 22:14:00 72.576 kg [facility] BMI 2024-04-25 22:14:00 29.26 kg/m2 [facility] Procedures Procedure Date / Time Performed Performing Clinicia n Source XR HAND 3+ VW RIGHT 2024-04-25 23:41:44 Vineet Michael [facility] XR WRIST 3+ VW RIGHT 2024-04-25 23:41:44 Diana Michael [facility] CT CERVICAL SPINE WO CONTRAST 2024-04-25 23:40:12 Vineet Michael [facility] CT HEAD WO CONTRAST 2024-04-25 23:40:12 Vineet Michael [facility] CT LUMBAR SPINE WO CONTRAST 2024-04-25 23:40:12 Vineet Michael [facility] CT THORACIC SPINE WO CONTRAST 2024-04-25 23:40:12 Fernanda Vineet [facility] Encounters Start Date/Time End Date/Time Encounter Type Admission Type Attending [facility] Facility Care Department Encounter ID Source 2024-05-07 11:29:00 2024-05-07 11:29:00 Emergency X [facility] ERT [id number] [facility] 2024-05-01 13:30:00 2024-05-01 14:00:00 Office Visit Katarzyna Harris [facility] 1..[id number] [facility] 2024-05-01 13:30:00 2024-05-01 13:30:00 Outpatient R KATARZYNA HARRIS [facility] [id number] [facility] 2024-04-30 14:39:00 2024-04-30 15:08:00 Emergency X YESICA MORA SANDRA [facility] ERT [id number] [facility] 2024-04-30 14:39:00 2024-04-30 15:08:00 Emergency Yesica Mora [facility] 1..840.114 [id number] [facility] 2024-04-25 16:19:00 2024-04-25 19:54:00 Emergency Vineet Michael [facility] 1..840.114 [id number] [facility] 2024-04-25 16:19:00 2024-04-25 19:54:00 Emergency X VINEET MICHAEL TIMOTHY [facility] ERT [id number] [facility] 2023-03-21 13:16:45 2023-03-21 13:16:45 Outpatient SFA SFA [id number] Janusz Lemuel Tim Results Test Description Test Time Test Comments Results Resul t Comments Source XR Hand 3+ vw right 8 00:31:25 STUDY: XRAY XR HAND 3+ VW RIGHT ORDERING PHYSICIAN: VINEET MICHAEL DATE: ?04/25/2024 4:45 PM REASON FOR EXAM: ?fall COMPARISON: None available TECHNIQUE: AP, lateral and oblique views of the right hand. HS:Y. FINDINGS: There is a possible, subtle, nondisplaced fracture involving theulnar styloid, better seen on separately dictated wrist films. Pleasecorrelate for pain in this region. No other fracture or dislocation is seen in the remaining right hand. Jointspaces are preserved. Soft tissues are normal. [facility] XR Wrist 3+ vw right 8 00:27:14 STUDY: XRAY XR WRIST 3+ VW RIGHT ORDERING PHYSICIAN: VINEET MICHAEL DATE: ?04/25/2024 4:45 PM REASON FOR EXAM: ?injury COMPARISON: None available TECHNIQUE: AP, lateral and oblique views of the right wrist FINDINGS: A subtle, nondisplaced fracture of the ulnar styloid may bepresent. Please correlate for pain in this region. Remaining visualized osseous structures and joint spaces are preserved.Soft tissues are normal. [facility] CT Head wo contrast 8 00:24:15 EXAM: CT HEAD WO CONTRAST, CT LUMBAR SPINE WO CONTRAST, CT THORACIC SPINEWO CONTRAST, CT CERVICAL SPINE WO CONTRAST HISTORY: ?Ground-level fall. COMPARISON: None. TECHNIQUE: Non-contrast CT of the head, cervical, thoracic and lumbar spinewith multiplanar reformats. FINDINGS: CT HEAD: The ventricles and cerebral sulci are normal in caliber and configuration.No hydrocephalus, midline shift or pathological extra-axial fluidcollection is present. The basal cisterns are unremarkable. There is no acute intracranial hemorrhage or significant mass effect. Noparenchymal attenuation abnormality. The daily-white matter differentiationis preserved. The paranasal sinuses and mastoid air cells are clear. No acute calvarial fractures. CT CERVICAL SPINE: There is slight reversal of cervical lordosis. The vertebral bodies arenormal in height. Trace anterolisthesis of C3 on C4. No acute fracture orsubluxation identified. Mild to moderate spondylosis most pronounced at C5-C6 and C6-C7. The atlantoaxial and craniocervical junctions are aligned. Multiple bilateral hypoattenuating thyroid nodules are noted measuring upto 1.3 cm on the right. CT THORACIC SPINE: The vertebral bodies are normal in height and alignment. No acute fractureor subluxation. A 7 mm sclerotic lesion in the T8 vertebral body may reflect enostosis. Theparaspinal soft tissues are unremarkable. CT LUMBAR SPINE The vertebral bodies are normal in height and alignment. No acute fractureor subluxation identified. Degenerative changes of lumbar spine are noted most pronounced at the L4-L5with disc height loss, vacuum phenomenon, endplate sclerosis, andosteophytosis. Diminutive left kidney may reflect atrophy or hypoplasia. The visualized sacrum and pelvic bones are unremarkable. [facility] CT Cervical spine wo contrast 8 00:24:15 EXAM: CT HEAD WO CONTRAST, CT LUMBAR SPINE WO CONTRAST, CT THORACIC SPINEWO CONTRAST, CT CERVICAL SPINE WO CONTRAST HISTORY: ?Ground-level fall. COMPARISON: None. TECHNIQUE: Non-contrast CT of the head, cervical, thoracic and lumbar spinewith multiplanar reformats. FINDINGS: CT HEAD: The ventricles and cerebral sulci are normal in caliber and configuration.No hydrocephalus, midline shift or pathological extra-axial fluidcollection is present. The basal cisterns are unremarkable. There is no acute intracranial hemorrhage or significant mass effect. Noparenchymal attenuation abnormality. The daily-white matter differentiationis preserved. The paranasal sinuses and mastoid air cells are clear. No acute calvarial fractures. CT CERVICAL SPINE: There is slight reversal of cervical lordosis. The vertebral bodies arenormal in height. Trace anterolisthesis of C3 on C4. No acute fracture orsubluxation identified. Mild to moderate spondylosis most pronounced at C5-C6 and C6-C7. The atlantoaxial and craniocervical junctions are aligned. Multiple bilateral hypoattenuating thyroid nodules are noted measuring upto 1.3 cm on the right. CT THORACIC SPINE: The vertebral bodies are normal in height and alignment. No acute fractureor subluxation. A 7 mm sclerotic lesion in the T8 vertebral body may reflect enostosis. Theparaspinal soft tissues are unremarkable. CT LUMBAR SPINE The vertebral bodies are normal in height and alignment. No acute fractureor subluxation identified. Degenerative changes of lumbar spine are noted most pronounced at the L4-L5with disc height loss, vacuum phenomenon, endplate sclerosis, andosteophytosis. Diminutive left kidney may reflect atrophy or hypoplasia. The visualized sacrum and pelvic bones are unremarkable. [facility] CT Thoracic spine wo contrast 8 00:24:15 EXAM: CT HEAD WO CONTRAST, CT LUMBAR SPINE WO CONTRAST, CT THORACIC SPINEWO CONTRAST, CT CERVICAL SPINE WO CONTRAST HISTORY: ?Ground-level fall. COMPARISON: None. TECHNIQUE: Non-contrast CT of the head, cervical, thoracic and lumbar spinewith multiplanar reformats. FINDINGS: CT HEAD: The ventricles and cerebral sulci are normal in caliber and configuration.No hydrocephalus, midline shift or pathological extra-axial fluidcollection is present. The basal cisterns are unremarkable. There is no acute intracranial hemorrhage or significant mass effect. Noparenchymal attenuation abnormality. The daily-white matter differentiationis preserved. The paranasal sinuses and mastoid air cells are clear. No acute calvarial fractures. CT CERVICAL SPINE: There is slight reversal of cervical lordosis. The vertebral bodies arenormal in height. Trace anterolisthesis of C3 on C4. No acute fracture orsubluxation identified. Mild to moderate spondylosis most pronounced at C5-C6 and C6-C7. The atlantoaxial and craniocervical junctions are aligned. Multiple bilateral hypoattenuating thyroid nodules are noted measuring upto 1.3 cm on the right. CT THORACIC SPINE: The vertebral bodies are normal in height and alignment. No acute fractureor subluxation. A 7 mm sclerotic lesion in the T8 vertebral body may reflect enostosis. Theparaspinal soft tissues are unremarkable. CT LUMBAR SPINE The vertebral bodies are normal in height and alignment. No acute fractureor subluxation identified. Degenerative changes of lumbar spine are noted most pronounced at the L4-L5with disc height loss, vacuum phenomenon, endplate sclerosis, andosteophytosis. Diminutive left kidney may reflect atrophy or hypoplasia. The visualized sacrum and pelvic bones are unremarkable. [facility] CT Lumbar spine wo contrast 8 00:24:15 EXAM: CT HEAD WO CONTRAST, CT LUMBAR SPINE WO CONTRAST, CT THORACIC SPINEWO CONTRAST, CT CERVICAL SPINE WO CONTRAST HISTORY: ?Ground-level fall. COMPARISON: None. TECHNIQUE: Non-contrast CT of the head, cervical, thoracic and lumbar spinewith multiplanar reformats. FINDINGS: CT HEAD: The ventricles and cerebral sulci are normal in caliber and configuration.No hydrocephalus, midline shift or pathological extra-axial fluidcollection is present. The basal cisterns are unremarkable. There is no acute intracranial hemorrhage or significant mass effect. Noparenchymal attenuation abnormality. The daily-white matter differentiationis preserved. The paranasal sinuses and mastoid air cells are clear. No acute calvarial fractures. CT CERVICAL SPINE: There is slight reversal of cervical lordosis. The vertebral bodies arenormal in height. Trace anterolisthesis of C3 on C4. No acute fracture orsubluxation identified. Mild to moderate spondylosis most pronounced at C5-C6 and C6-C7. The atlantoaxial and craniocervical junctions are aligned. Multiple bilateral hypoattenuating thyroid nodules are noted measuring upto 1.3 cm on the right. CT THORACIC SPINE: The vertebral bodies are normal in height and alignment. No acute fractureor subluxation. A 7 mm sclerotic lesion in the T8 vertebral body may reflect enostosis. Theparaspinal soft tissues are unremarkable. CT LUMBAR SPINE The vertebral bodies are normal in height and alignment. No acute fractureor subluxation identified. Degenerative changes of lumbar spine are noted most pronounced at the L4-L5with disc height loss, vacuum phenomenon, endplate sclerosis, andosteophytosis. Diminutive left kidney may reflect atrophy or hypoplasia. The visualized sacrum and pelvic bones are unremarkable. [facility] Notes Date/Time Note Provider Source 2024-04-30 15:06:53 Pt given printed and verbal discharge instructions regarding low back pain. Pt verbalized understanding of instructions, pt awake alert oriented, resp reg unlabored, skin w/d, color appropriate for race, moves all ext well,pt encouraged to follow up with pcp & ortho. Advised to seek medical attention for new/prolonged/worsening of symptoms. No adverse reaction to meds given in ER noted upon discharge. PIV d'cd, dressing to site, catheter in tact. Awake, alert oriented, resp reg unlabored, skin w/d, pt leaving amb with steady gait, in no apparent distress. CARE INSURANCE SPECIALIST Ynes Mora RN [facility] 2024-04-30 14:37:58 CC: patient presents to the ER with complaints of right wrist pain and a bowed finger. Patient states she fell Sunday, states she was seen on the ER and diagnosed with a fracture. Awake, alert, oriented, resp reg unlabored, skin warm and dry, color appropriate for race, moves all ext without difficulty, amb without assistance. Appears in no distress. CARE INSURANCE SPECIALIST Tana Marques RN [facility] 2024-04-30 14:27:00 [facility] Emergency Department Note Patient Name: Gillian Gavin Date of : 1975 48 year old female Treatment Room: [facility] ED [facility] Primary Care Physician: [facility] Patient Escorted by: Self [9] Mode of Arrival: Personal means [1] EMS Treatment Prior to ED Arrival: WARP HANGER treatment: None Travel and Exposure Screening: Symptoms Does patient have any of these symptoms?: (not recorded) Exposure Screening Has patient had contact with someone with a communicable disease in the last month?: (not recorded) Diseases exposed to:: (not recorded) Is Patient ?: (not recorded) Exposure Date: (not recorded) Chief Complaint: Chief Complaint Patient presents with Wrist Pain Right History of Present Illness: The patient presents from home for evaluation for pain to her back, head and right wrist status post fall that occurred on April 25. She was seen here and had x-rays showing a fracture to her wrist. She also had CTs of her head, cervical, thoracic and lumbar spine that showed no acute traumatic injuries. She has follow-up with orthopedics scheduled for tomorrow. She reports has been using the [place] 7.5 mg tablet she was prescribed and is still having pain. She last had pain medication around 10 AM today. She is right-handed. Here for evaluation. Past Medical History/Immunizations: History reviewed. No pertinent past medical history. Tetanus received in last 5 years: Unknown Allergies: No Known Allergies Past Social History: Substance & Sexual Activity No substance use or sexual activity history on file. Past Surgical History: History reviewed. No pertinent surgical history. Review of Systems: Review of Systems Constitutional: Negative for chills and fever. Respiratory: Negative for cough and shortness of breath. Cardiovascular: Negative for chest pain. Gastrointestinal: Negative for abdominal pain and vomiting. Genitourinary: Negative for dysuria. Musculoskeletal: Positive for back pain. Negative for neck pain and neck stiffness. Skin: Negative for wound. Neurological: Negative for dizziness. Psychiatric/Behavioral: Negative for agitation. Endocrine: Negative for goiter. Physical Exam: ED Triage Vitals [04/30/24 1436] Weight 72.6 kg (160 lb) Actual or estimated Estimated by patient/family report Height 1.575 m (5' 2") BP (!) 152/100 Pulse 102 Resp 16 Temp 37 ?C (98.6 ?F) Temp source Oral SpO2 95 % Measured on Room air Physical Exam Vitals and nursing note reviewed. Constitutional: Appearance: Normal appearance. HENT: Head: Normocephalic and atraumatic. Cardiovascular: Rate and Rhythm: Normal rate and regular rhythm. Pulses: Normal pulses. Pulmonary: Effort: Pulmonary effort is normal. No respiratory distress. Abdominal: General: There is no distension. Musculoskeletal: General: Normal range of motion. Cervical back: Neck supple. Comments: No vertebral body tenderness to the cervical, thoracic or lumbar spine. She has a thumb spica splint in place to the right wrist. Skin: General: Skin is warm and dry. Neurological: General: No focal deficit present. Mental Status: She is alert and oriented to person, place, and time. Radiology: No orders to display Lab Results: Lab Results - No data to display EKG: If EKG completed, see Procedure Note. Orders and Treatments: No orders of the defined types were placed in this encounter. Orders Placed This Encounter Medications kvphjjyesr-ttliixkwmvufu-uwve (ESGIC) 50-325-40 mg tablet 1 tablet dexamethasone sod phos PF injection 10 mg First Provider Eval: ED Events Date/Time Event User Comments 04/30/24 143 Medical Screening Begins YESICA MORA DO -- 04/30/24 143 First Provider Evaluation YESICA MORA DO -- ED COURSE Diagnosis/Impression as of 04/30/24 1448 Acute right-sided low back pain with right-sided sciatica Procedures: Procedures MDM: Medical Decision Making The patient presents from home for evaluation for pain to her back, head and right wrist status post fall that occurred on April 25. She was seen here and had x-rays showing a fracture to her wrist. She has follow-up with orthopedics scheduled for tomorrow. She reports has been using the [place] 7.5 mg tablet she was prescribed and is still having pain. She last had pain medication around 10 AM today. She is right-handed. Vital signs are stable in the ER. She has no vertebral body tenderness to her cervical, thoracic or lumbar spine. She is a thumb spica splint in place to her right wrist. Will give the patient pain medication here in the ER. Recommend she follow-up with orthopedics as scheduled tomorrow. She remained stable here in the ER and is okay for discharge home with PCP follow-up. Problems Addressed: Acute right-sided low back pain with right-sided sciatica: acute illness or injury Risk OTC drugs. Prescription drug management. Flowsheet Documentation: Scoring Tools: No data recorded Disposition/Condition: ED Disposition ED Disposition Discharge Condition Stable Comment -- Discharge Medications: Patient's Medications START taking these medications No medications on file CONTINUE taking these medications which have NOT CHANGED HYDROCODONE-ACETAMINOPHEN 7.5-325 MG PER TABLET Take 1-2 tablets by mouth every 6 (six) hours as needed for Pain. Indications: acute pain MELOXICAM 7.5 MG TABLET Take 1 tablet by mouth in the morning. ORPHENADRINE 100 MG SR TABLET Take 1 tablet by mouth every 12 (twelve) hours. START taking Modified Medications as Prescribed No medications on file STOP taking these medications No medications on file Follow-up: Electronically signed by: Yesica Mora DO 04/30/24 1448 [facility] 2024-04-25 19:52:27 Awake, alert oriented X4, respiratory even and unlabored,skin w/d color appropriate for race, moves all ext well, pt encouraged to follow up with pcp and or return as needed. Pt given printed and verbal discharge instructions regarding fall on same level from slipping, injury of head, contusion of upper back, injury of low back, and closed displaced fracture of styloid process of right radius. Patient verbalized understanding and signature obtained, patient denies any other concerns. Prescriptions provided. Discussed NORCO 7.5 side affects and to avoid driving/operating machinery/or engaging in activities requiring alertness while taking. Advised to seek medical attention for new/prolonged/worsening of symptoms. No adverse reaction to meds given in ER noted upon discharge. Pt to private vehicle via wheel chair by platform power technician. CARE INSURANCE SPECIALIST Nina Bah RN [facility] 2024-04-25 16:08:09 Toned out to [facility]; EMS was called due to pt. tripping over a step-ladder that was on the floor at [facility]; pt. Reports she fell backwards on her buttocks & hit head & back on shelf; pt. Reports vomiting x4; denies LOC; denies being on thinners; pt. Reports two ladies were on the aisle that witnessed; EMS reports nothing was given WARP HANGER; C-Collar in Place CARE INSURANCE SPECIALIST [facility] 2024-04-25 16:04:00 [facility] Emergency Department Note Patient Name: Gillian Gavin Date of : 1975 48 year old female Treatment Room: [facility] ED [facility] Primary Care Physician: [facility] Patient Escorted by: Family [5] Mode of Arrival: EMS - [facility] ([place] [43] EMS Treatment Prior to ED Arrival: WARP HANGER treatment: C-collar Travel and Exposure Screening: Symptoms Does patient have any of these symptoms?: (not recorded) Exposure Screening Has patient had contact with someone with a communicable disease in the last month?: (not recorded) Diseases exposed to:: (not recorded) Is Patient ?: (not recorded) Exposure Date: (not recorded) Chief Complaint: Chief Complaint Patient presents with Fall History of Present Illness: This patient relates that she was shopping at [employer] when she accidentally stepped backwards and tripped over a ladder that was on the floor. The patient relates that she hit the shelves behind her. The patient further relates that her head and back hit the shelves. She also relates trying to catch her fall with her left outstretched hand. The patient relates some hand and wrist discomfort. The patient relates her pain to be moderate to severe. The discomfort is sharp to aching in quality. Movement increases discomfort and nothing resolves the discomfort. The patient relates that she vomited immediately after the injury. History provided by: Patient Past Medical History/Immunizations: No past medical history on file. Tetanus received in last 5 years: Unknown Childhood immunizations: Up-to-date Allergies: No Known Allergies Past Social History: Substance & Sexual Activity No substance use or sexual activity history on file. Past Surgical History: No past surgical history on file. Review of Systems: Review of Systems Constitutional: Positive for activity change. Negative for appetite change, diaphoresis and fever. HENT: Negative for ear discharge, nosebleeds and sore throat. Eyes: Negative for pain, discharge, redness and itching. Respiratory: Negative for chest tightness and shortness of breath. Cardiovascular: Negative for chest pain. Gastrointestinal: Positive for nausea and vomiting. Negative for abdominal pain and diarrhea. Genitourinary: Negative for dysuria, hematuria and difficulty urinating. Musculoskeletal: Positive for back pain and neck pain. Skin: Negative for color change. Physical Exam: ED Triage Vitals [04/25/24 1614] Weight 72.6 kg (160 lb) Actual or estimated Height 1.575 m (5' 2") BP (!) 135/105 Pulse 91 Resp 18 Temp 36.8 ?C (98.2 ?F) Temp source Oral SpO2 99 % Measured on Room air Physical Exam Constitutional: Appearance: She is not ill-appearing. HENT: Head: Normocephalic. Comments: Posterior scalp tenderness without depression or step-off deformity Right Ear: Tympanic membrane, ear canal and external ear normal. Left Ear: Tympanic membrane, ear canal and external ear normal. Nose: Nose normal. No congestion. Mouth/Throat: Mouth: Mucous membranes are moist. Pharynx: No oropharyngeal exudate or posterior oropharyngeal erythema. Eyes: General: No scleral icterus. Right eye: No discharge. Left eye: No discharge. Conjunctiva/sclera: Conjunctivae normal. Cardiovascular: Rate and Rhythm: Normal rate and regular rhythm. Pulses: Normal pulses. Heart sounds: Normal heart sounds. Pulmonary: Effort: Pulmonary effort is normal. No respiratory distress. Breath sounds: Normal breath sounds. Abdominal: General: Bowel sounds are normal. There is no distension. Palpations: Abdomen is soft. Tenderness: There is no abdominal tenderness. Musculoskeletal: General: Tenderness present. Cervical back: Tenderness present. No rigidity. Comments: The patient has multiple areas of tenderness and discomfort. 1. The patient has tenderness to palpation of the posterior medial scalp. 2. The patient has paraspinal neck tenderness bilaterally see 4 through C7 3. The patient has right wrist and right index finger tenderness. 4. The patient has thoracic paraspinal tenderness to the 3 through T7 bilaterally. 5. The patient has lumbar tenderness to the left paraspinal L to through L5. Skin: General: Skin is warm. Capillary Refill: Capillary refill takes less than 2 seconds. Coloration: Skin is not jaundiced or pale. Neurological: General: No focal deficit present. Mental Status: She is alert. Cranial Nerves: No cranial nerve deficit. Motor: No weakness. Radiology: XR Wrist 3+ vw right Final Result STUDY: XRAY XR WRIST 3+ VW RIGHT ORDERING PHYSICIAN: VINEET MICHAEL DATE: 04/25/2024 4:45 PM REASON FOR EXAM: injury COMPARISON: None available TECHNIQUE: AP, lateral and oblique views of the right wrist FINDINGS: A subtle, nondisplaced fracture of the ulnar styloid may be present. Please correlate for pain in this region. Remaining visualized osseous structures and joint spaces are preserved. Soft tissues are normal. IMPRESSION A subtle, nondisplaced fracture of the ulnar styloid may be present. Please correlate for pain in this region. RL: [id number]. HS:Y. Hand 3+ vw right Final Result STUDY: XRAY XR HAND 3+ VW RIGHT ORDERING PHYSICIAN: VINEET MICHAEL DATE: 04/25/2024 4:45 PM REASON FOR EXAM: fall COMPARISON: None available TECHNIQUE: AP, lateral and oblique views of the right hand. HS:Y. FINDINGS: There is a possible, subtle, nondisplaced fracture involving the ulnar styloid, better seen on separately dictated wrist films. Please correlate for pain in this region. No other fracture or dislocation is seen in the remaining right hand. Joint spaces are preserved. Soft tissues are normal. IMPRESSION 1. There is a possible, subtle, nondisplaced fracture involving the ulnar styloid, better seen on separately dictated wrist films. Please correlate for pain in this region. 2. No other fracture or dislocation is seen in the right hand. RL: [id number]. Head wo contrast Final Result EXAM: CT HEAD WO CONTRAST, CT LUMBAR SPINE WO CONTRAST, CT THORACIC SPINE WO CONTRAST, CT CERVICAL SPINE WO CONTRAST HISTORY: Ground-level fall. COMPARISON: None. TECHNIQUE: Non-contrast CT of the head, cervical, thoracic and lumbar spine with multiplanar reformats. FINDINGS: CT HEAD: The ventricles and cerebral sulci are normal in caliber and configuration. No hydrocephalus, midline shift or pathological extra-axial fluid collection is present. The basal cisterns are unremarkable. There is no acute intracranial hemorrhage or significant mass effect. No parenchymal attenuation abnormality. The daily-white matter differentiation is preserved. The paranasal sinuses and mastoid air cells are clear. No acute calvarial fractures. CT CERVICAL SPINE: There is slight reversal of cervical lordosis. The vertebral bodies are normal in height. Trace anterolisthesis of C3 on C4. No acute fracture or subluxation identified. Mild to moderate spondylosis most pronounced at C5-C6 and C6-C7. The atlantoaxial and craniocervical junctions are aligned. Multiple bilateral hypoattenuating thyroid nodules are noted measuring up to 1.3 cm on the right. CT THORACIC SPINE: The vertebral bodies are normal in height and alignment. No acute fracture or subluxation. A 7 mm sclerotic lesion in the T8 vertebral body may reflect enostosis. The paraspinal soft tissues are unremarkable. CT LUMBAR SPINE The vertebral bodies are normal in height and alignment. No acute fracture or subluxation identified. Degenerative changes of lumbar spine are noted most pronounced at the L4-L5 with disc height loss, vacuum phenomenon, endplate sclerosis, and osteophytosis. Diminutive left kidney may reflect atrophy or hypoplasia. The visualized sacrum and pelvic bones are unremarkable. IMPRESSION No acute intracranial abnormality. No acute fracture or traumatic malalignment of the cervical, thoracic or lumbar spine. Preliminary Report Dictated by Resident: Samantha Jackson MD., have reviewed this study and agree with the above report. CT Cervical spine wo contrast Final Result EXAM: CT HEAD WO CONTRAST, CT LUMBAR SPINE WO CONTRAST, CT THORACIC SPINE WO CONTRAST, CT CERVICAL SPINE WO CONTRAST HISTORY: Ground-level fall. COMPARISON: None. TECHNIQUE: Non-contrast CT of the head, cervical, thoracic and lumbar spine with multiplanar reformats. FINDINGS: CT HEAD: The ventricles and cerebral sulci are normal in caliber and configuration. No hydrocephalus, midline shift or pathological extra-axial fluid collection is present. The basal cisterns are unremarkable. There is no acute intracranial hemorrhage or significant mass effect. No parenchymal attenuation abnormality. The daily-white matter differentiation is preserved. The paranasal sinuses and mastoid air cells are clear. No acute calvarial fractures. CT CERVICAL SPINE: There is slight reversal of cervical lordosis. The vertebral bodies are normal in height. Trace anterolisthesis of C3 on C4. No acute fracture or subluxation identified. Mild to moderate spondylosis most pronounced at C5-C6 and C6-C7. The atlantoaxial and craniocervical junctions are aligned. Multiple bilateral hypoattenuating thyroid nodules are noted measuring up to 1.3 cm on the right. CT THORACIC SPINE: The vertebral bodies are normal in height and alignment. No acute fracture or subluxation. A 7 mm sclerotic lesion in the T8 vertebral body may reflect enostosis. The paraspinal soft tissues are unremarkable. CT LUMBAR SPINE The vertebral bodies are normal in height and alignment. No acute fracture or subluxation identified. Degenerative changes of lumbar spine are noted most pronounced at the L4-L5 with disc height loss, vacuum phenomenon, endplate sclerosis, and osteophytosis. Diminutive left kidney may reflect atrophy or hypoplasia. The visualized sacrum and pelvic bones are unremarkable. IMPRESSION No acute intracranial abnormality. No acute fracture or traumatic malalignment of the cervical, thoracic or lumbar spine. Preliminary Report Dictated by Resident: Samantha Jacksonlova, MD., have reviewed this study and agree with the above report. CT Thoracic spine wo contrast Final Result EXAM: CT HEAD WO CONTRAST, CT LUMBAR SPINE WO CONTRAST, CT THORACIC SPINE WO CONTRAST, CT CERVICAL SPINE WO CONTRAST HISTORY: Ground-level fall. COMPARISON: None. TECHNIQUE: Non-contrast CT of the head, cervical, thoracic and lumbar spine with multiplanar reformats. FINDINGS: CT HEAD: The ventricles and cerebral sulci are normal in caliber and configuration. No hydrocephalus, midline shift or pathological extra-axial fluid collection is present. The basal cisterns are unremarkable. There is no acute intracranial hemorrhage or significant mass effect. No parenchymal attenuation abnormality. The daily-white matter differentiation is preserved. The paranasal sinuses and mastoid air cells are clear. No acute calvarial fractures. CT CERVICAL SPINE: There is slight reversal of cervical lordosis. The vertebral bodies are normal in height. Trace anterolisthesis of C3 on C4. No acute fracture or subluxation identified. Mild to moderate spondylosis most pronounced at C5-C6 and C6-C7. The atlantoaxial and craniocervical junctions are aligned. Multiple bilateral hypoattenuating thyroid nodules are noted measuring up to 1.3 cm on the right. CT THORACIC SPINE: The vertebral bodies are normal in height and alignment. No acute fracture or subluxation. A 7 mm sclerotic lesion in the T8 vertebral body may reflect enostosis. The paraspinal soft tissues are unremarkable. CT LUMBAR SPINE The vertebral bodies are normal in height and alignment. No acute fracture or subluxation identified. Degenerative changes of lumbar spine are noted most pronounced at the L4-L5 with disc height loss, vacuum phenomenon, endplate sclerosis, and osteophytosis. Diminutive left kidney may reflect atrophy or hypoplasia. The visualized sacrum and pelvic bones are unremarkable. IMPRESSION No acute intracranial abnormality. No acute fracture or traumatic malalignment of the cervical, thoracic or lumbar spine. Preliminary Report Dictated by Resident: Samantha Jackson MD., have reviewed this study and agree with the above report. CT Lumbar spine wo contrast Final Result EXAM: CT HEAD WO CONTRAST, CT LUMBAR SPINE WO CONTRAST, CT THORACIC SPINE WO CONTRAST, CT CERVICAL SPINE WO CONTRAST HISTORY: Ground-level fall. COMPARISON: None. TECHNIQUE: Non-contrast CT of the head, cervical, thoracic and lumbar spine with multiplanar reformats. FINDINGS: CT HEAD: The ventricles and cerebral sulci are normal in caliber and configuration. No hydrocephalus, midline shift or pathological extra-axial fluid collection is present. The basal cisterns are unremarkable. There is no acute intracranial hemorrhage or significant mass effect. No parenchymal attenuation abnormality. The daily-white matter differentiation is preserved. The paranasal sinuses and mastoid air cells are clear. No acute calvarial fractures. CT CERVICAL SPINE: There is slight reversal of cervical lordosis. The vertebral bodies are normal in height. Trace anterolisthesis of C3 on C4. No acute fracture or subluxation identified. Mild to moderate spondylosis most pronounced at C5-C6 and C6-C7. The atlantoaxial and craniocervical junctions are aligned. Multiple bilateral hypoattenuating thyroid nodules are noted measuring up to 1.3 cm on the right. CT THORACIC SPINE: The vertebral bodies are normal in height and alignment. No acute fracture or subluxation. A 7 mm sclerotic lesion in the T8 vertebral body may reflect enostosis. The paraspinal soft tissues are unremarkable. CT LUMBAR SPINE The vertebral bodies are normal in height and alignment. No acute fracture or subluxation identified. Degenerative changes of lumbar spine are noted most pronounced at the L4-L5 with disc height loss, vacuum phenomenon, endplate sclerosis, and osteophytosis. Diminutive left kidney may reflect atrophy or hypoplasia. The visualized sacrum and pelvic bones are unremarkable. IMPRESSION No acute intracranial abnormality. No acute fracture or traumatic malalignment of the cervical, thoracic or lumbar spine. Preliminary Report Dictated by Resident: Yojana Garcia I, Samantha Loya MD., have reviewed this study and agree with the above report. Lab Results: Lab Results - No data to display EKG: If EKG completed, see Procedure Note. Orders and Treatments: Orders Placed This Encounter Procedures CT Head wo contrast CT Cervical spine wo contrast CT Thoracic spine wo contrast CT Lumbar spine wo contrast XR Wrist 3+ vw right XR Hand 3+ vw right Referral Orthopaedic Surgery Orders Placed This Encounter Medications morpHINE (4 mg/mL) injection 4 mg ondansetron (ZOFRAN (PF)) injection 4 mg morpHINE (4 mg/mL) injection 4 mg orphenadrine 100 mg SR tablet meloxicam 7.5 mg tablet HYDROcodone-acetaminophen 7.5-325 mg per tablet First Provider Eval: ED Events Date/Time Event User Comments 04/25/241613 Medical Screening Begins VINEET MICHAEL DO -- 04/25/241613 First Provider Evaluation VINEET MICHAEL DO -- ED COURSE Diagnosis/Impression as of 04/25/241945 Fall on same level from slipping, tripping or stumbling, initial encounter Injury of head, initial encounter Contusion of upper back, unspecified laterality, initial encounter Injury of low back, initial encounter Closed displaced fracture of styloid process of right radius, initial encounter Procedures: Procedures MDM: Medical Decision Making Patient was evaluated for the complaint of Fall Diagnoses considered but not limited to: Abrasion Concussion without loss of consciousness Contusion Dislocation Fracture Sprain Strain. Labs:were not ordered. Imaging:Ordered, and resulted, any relevant abnormalities were considered. Procedures:were not performed. History, physical exam findings, results of visit, diagnosis, medication regimens and plan of future care have been considered. Additional MDM may be found in the ED course. Vital signs were rechecked before final disposition and determined to be stable. Amount and/or Complexity of Data Reviewed Radiology: ordered. Decision-making details documented in ED Course. Risk Prescription drug management. Parenteral controlled substances. Flowsheet Documentation: Scoring Tools: No data recorded Disposition/Condition: ED Disposition ED Disposition Discharge Condition Stable Comment -- Discharge Medications: Patient's Medications START taking these medications HYDROCODONE-ACETAMINOPHEN 7.5-325 MG PER TABLET Take 1-2 tablets by mouth every 6 (six) hours as needed for Pain. Indications: acute pain MELOXICAM 7.5 MG TABLET Take 1 tablet by mouth in the morning. ORPHENADRINE 100 MG SR TABLET Take 1 tablet by mouth every 12 (twelve) hours. CONTINUE taking these medications which have NOT CHANGED No medications on file START taking Modified Medications as Prescribed No medications on file STOP taking these medications No medications on file Follow-up: Contact information for follow-up Your Doctor Electronically signed by: Vineet Michael DO 04/25/241945 [facility]
[2024-07-27] MEDS ORDERED: TETRACAINE HCL 0.5% 4ML OPTH ONE (16:27)
[2024-07-27] MEDS ORDERED: FLUORESCEIN SODIUM 1 MG/WRAP ONE (16:27)
--- NOTE | 2024-07-27 16:47 | EDPHYS ---
Physician Documentation [facility] Name: Gillian Almeida Age: 49 yrs Sex: Female : 1975 Arrival Date: 07/27/2024 Time: 16:09 Bed 2 Private MD: ED Physician Jose Rios HPI: 07/27 16:46 This 49 yrs old Female presents to ER via Ambulatory with complaints of Eye Problem, kb Pain All Over. 16:46 Pt is a 49 year old female who presents for right eye pain that started this morning. kb States she was doing yard work and a vine hit her in the eye. Denies any visual deficits. . Historical: - Allergies: 16:23 No Known Allergies; aa5 - PMHx: 16:23 adhd; Hypertensive disorder; depressive disorder; aa5 - PSHx: 16:23 Appendectomy; aa5 - Immunization history:: Last tetanus immunization: unknown. - Infectious Disease History:: Denies. - Social history:: Smoking status: Patient reports the use of cigarette tobacco products, smokes one-half pack cigarettes per day. ROS: 16:45 Constitutional: As per HPI kb Exam: 16:45 Constitutional: This is a well developed, well nourished patient who is awake, alert, kb and in no acute distress. Head/Face: Normocephalic, atraumatic. Cardiovascular: Regular rate Respiratory: Respirations even and unlabored. No increased work of breathing. Talking in full sentences Skin: Warm, dry with normal turgor. Normal color. MS/ Extremity: Pulses equal, no cyanosis. Neurovascular intact. Full, normal range of motion. Neuro: Awake and alert, GCS 15, oriented to person, place, time, and situation. 16:45 Eyes: Periorbital structures: swelling, that is mild, on the right upper eyelid, Pupils: equal, round, and reactive to light and accomodation, Extraocular movements: intact throughout, Conjunctiva: injected, in the right eye, Corneas: abrasion, that is small, on the right, at 8 o'clock, foreign body, is not appreciated, a fluorescein strip employed to appreciate the findings, Vital Signs: 16:21 BP 169 / 117; Pulse 92; Resp 18; Temp 97.8(O); Pulse Ox 99% ; Weight 72.57 kg; Height 5 aa5 ft. 2 in. ; Pain 1010; 16:21 Body Mass Index 29.26 (72.57 kg, 157.48 cm) aa5 16:21 Pain Scale: Adult aa5 MDM: 16:20 Medical Screening Exam initiated kb 16:45 Differential diagnosis: Corneal abrasion of Corneal ulcer of Foreign body in Acute kb iritis of Data reviewed: vital signs, nurses notes. Counseling: I had a detailed discussion with the patient and/or guardian regarding the historical points, exam findings, and any diagnostic results supporting the discharge/admit diagnosis, the need for outpatient follow up, an opthalmologist, to return to the emergency department if symptoms worsen or persist or if there are any questions or concerns that arise at home. 07/27 16:23 Order name: Eye Tray; Complete Time: 16:32 kb 07/27 16:23 Order name: Fluoresene Opth strip; Complete Time: 16:32 kb Administered Medications: 16:53 Drug: Tetracaine Ophthalmic Drops 0.5 % 1 drops Ophthalmic once {Note: Administered by prFNP. April} Route: Ophthalmic; Site: right eye; 17:10 Drug: Ketorolac IM 30 mg IM once Route: IM; Site: right deltoid; jb4 17:10 Follow up: Response: Medication administered at discharge. jb4 Disposition: 18:40 Co-signature as Attending Physician, Jose Rios MD I reviewed the patient's care rn provided by the Advanced Practice Provider and agree with the diagnosis and treatment plan. Disposition Summary: 07/27/24 16:47 Discharge Ordered Notes: Location: Home Condition: Stable Diagnosis - Injury of conjunctiva and corneal abrasion without foreign body, right eye kb Followup: kb - With: Emergency Department - When: As needed - Reason: Worsening of condition Followup: kb - With: Private Physician - When: 2 - 3 days - Reason: Recheck today's complaints, Continuance of care, Re-evaluation by your physician Discharge Instructions: - Discharge Summary Sheet kb - Corneal Abrasion, [id number] kb Forms: - Medication Reconciliation Form kb - Antibiotic Education kb - Prescription Opioid Use kb - Patient Portal Instructions kb - Leadership Thank You Letter kb Prescriptions: - Vigamox 0.5 % Ophthalmic Drops - instill 1 drop OPHTHALMIC route every 8 hours for 7 days; 5 milliliter; kb Refills: 0, Product Selection Permitted Signatures: Mimi Wells, ATHLETIC TEAM PHYSICIAN-C ATHLETIC TEAM PHYSICIAN-Ckb Jose Rios MD MD rn Marika Morales, RN RN aa5 Nathan Harmon RN RN jb4 Colette Mclean, RN RN me1
--- NOTE | 2024-07-27 16:47 | ER ---
Nurse's Notes [facility] Name: Gillian Almeida Age: 49 yrs Sex: Female : 1975 Arrival Date: 07/27/2024 Time: 16:09 Bed 2 Private MD: Diagnosis: Injury of conjunctiva and corneal abrasion without foreign body, right eye Presentation: 07/27 16:21 Chief complaint: Patient states: "I was trying to get fermín off the side of my house aa5 this morning and it popped off and hit me in my eye. I scratched the hell out of my cornea." Pt also c/o neck pain since April. Coronavirus screen: Client denies travel out of the [place] in the last 14 days. Ebola Screen: Patient denies exposure to infectious person. Patient denies travel to an Ebola-affected area in the 21 days before illness onset. Initial Sepsis Screen: Does the patient meet any 2 criteria? No. Patient's initial sepsis screen is negative. Does the patient have a suspected source of infection? No. Patient's initial sepsis screen is negative. Risk Assessment: Do you want to hurt yourself or someone else? Patient reports no desire to harm self or others. Onset of symptoms was July 27, 2024. 16:21 Method Of Arrival: Ambulatory aa5 16:21 Acuity: JAIDA 2 aa5 Historical: - Allergies: 16:23 No Known Allergies; aa5 - PMHx: 16:23 adhd; Hypertensive disorder; depressive disorder; aa5 - PSHx: 16:23 Appendectomy; aa5 - Immunization history:: Last tetanus immunization: unknown. - Infectious Disease History:: Denies. - Social history:: Smoking status: Patient reports the use of cigarette tobacco products, smokes one-half pack cigarettes per day. Screenin:30 [facility] ED Fall Risk Assessment (Adult) History of falling in the last 3 months, me1 including since admission No falls in past 3 months (0 pts) Confusion or Disorientation No (0 pts) Intoxicated or Sedated No (0 pts) Impaired Gait No (0 pts) Mobility Assist Device Used No (0 pt) Altered Elimination No (0 pt) Score/Fall Risk Level 0 - 2 = Low Risk Maintained a safe environment, Provided non-skid footwear, Hourly rounding (assess needs \\T\\ fall precautionary measures) done. Abuse screen: Denies threats or abuse. Nutritional screening: No deficits noted. Tuberculosis screening: No symptoms or risk factors identified. Assessment: 16:30 General: Appears uncomfortable, well groomed, well developed, well nourished, Behavior me1 is calm, cooperative, appropriate for age. Pain: Complains of pain in right eye Pain does not radiate. Pain currently is 10 out of 10 on a pain scale. Quality of pain is described as burning, throbbing, Pain began suddenly, Is continuous. Neuro: Level of Consciousness is awake, alert, obeys commands, Oriented to person, place, time, situation, Appropriate for age. Cardiovascular: Patient's skin is warm and dry. Respiratory: Airway is patent Respiratory effort is even, unlabored, Respiratory pattern is regular, symmetrical. GI: No signs and/or symptoms were reported involving the gastrointestinal system. : No signs and/or symptoms were reported regarding the genitourinary system. EENT: Reports pain in right eye and right upper eyelid. Derm: Skin is intact, is healthy with good turgor, Skin is pink, warm \\T\\ dry. Musculoskeletal: No signs and/or symptoms reported regarding the musculoskeletal system. 17:11 Reassessment: Patient appears in no apparent distress at this time. Patient and/or jb4 family updated on plan of care and expected duration. Pain level reassessed. Patient is alert, oriented x 3, equal unlabored respirations, skin warm/dry/pink. Vital Signs: 16:21 BP 169 / 117; Pulse 92; Resp 18; Temp 97.8(O); Pulse Ox 99% ; Weight 72.57 kg; Height 5 aa5 ft. 2 in. ; Pain 10/10; 16:21 Body Mass Index 29.26 (72.57 kg, 157.48 cm) aa5 16:21 Pain Scale: Adult aa5 ED Course: 16:13 Patient arrived in ED. cj3 16:20 Mimi Wells [facility]. kb 16:20 Jose Rios MD is Attending Physician. kb 16:23 Triage completed. aa5 16:23 Arm band placed on left wrist. aa5 16:30 Patient has correct armband on for positive identification. Bed in low position. Call me1 light in reach. Side rails up X 1. Provided Education on: POC. Verbalized understanding.. Client placed on continuous cardiac and pulse oximetry monitoring. NIBP monitoring applied. Pulse ox on. NIBP on. 16:30 No provider procedures requiring assistance completed. Patient did not have IV access [facility] during this emergency room visit. 16:53 Colette Mclean, RN is Primary Nurse. mn1 Administered Medications: 16:53 Drug: Tetracaine Ophthalmic Drops 0.5 % 1 drops Ophthalmic once {Note: Administered by mn1 MERCY Wang.} Route: Ophthalmic; Site: right eye; 17:10 Drug: Ketorolac IM 30 mg IM once Route: IM; Site: right deltoid; jb4 17:10 Follow up: Response: Medication administered at discharge. jb4 Medication: 16:30 VIS not applicable for this client. [facility] Outcome: 16:47 Discharge ordered by . kb 17:11 Discharged to home ambulatory, jb4 17:11 Condition: stable 17:11 Discharge instructions given to patient, Instructed on discharge instructions, follow up and referral plans. medication usage, Demonstrated understanding of instructions, follow-up care, medications, Prescriptions given X 1, 17:11 Patient left the ED. jb4 Signatures: Mimi Wells, [facility]-Marika Cano RN RN aa5 Nathan Harmon, RN RN jb4 Colette Mclean, RN RN me1 Mary Taveras cj3 Corrections: (The following items were deleted from the chart) 17:02 16:21 Chief complaint: Patient states: "I was trying to get fermín off the side of my [facility] house this morning and it popped off and hit me in my eye. I scratched the hell out of my cornea." Pt also c/o neck pain since April. aa5
[2024-07-27] MEDS ORDERED: KETOROLAC 30 MG/ML INJ ONE (17:04)
[2024-07-27 17:34] VITALS: BP 169/117; TEMP 97.8; O2SAT 99
== END 2024-07-27 17:11 | disposition home or self-care (01) ==
LOC: ER 16:09
DX: S05.01XA Injury of conjunctiva and corneal abrasion without foreign body, right eye, initial encounter (principal)
CPT/HCPCS: 96372; 99284